=== PATIENT | male | born 1990 | race Caucasian/White ===

== ENCOUNTER 2024-09-16 06:49 | Emergency (ER) | payer MEDICAID, SELFPAY ==
[2024-09-16] VITALS (10 sets, daily range): BP systolic 132–149; BP diastolic 65–101; PULSE 83–118; RESP 26–45; TEMP 36.7–38.7; O2SAT 88–100; BMI 24.9
--- NOTE | ~2024-09-16 | CT_ITS ---
EXAMINATION: CT HEAD WITHOUT CONTRAST CLINICAL INFORMATION: Altered mental status. COMPARISON: None available. TECHNIQUE: Contiguous axial imaging was performed from the skull base to vertex without intravenous administration of contrast. This CT examination was performed using dose optimization techniques as appropriate, variously including the following: *Automated exposure control *Adjustment of mA and/or kV according to patient size (this includes techniques or standardized protocols for targeted exams where dose is matched to indication/reason for exam; i.e. extremities or head) *Use of iterative reconstruction technique FINDINGS: Study is limited by motion artifact, limiting the sensitivity of the examination. There is no evidence of intracranial hemorrhage or extra-axial fluid collection. There is no mass effect, or edema. No CT evidence of acute territorial infarct. Ventricles, sulci, and cisterns are normal in size and configuration for patient age. No hydrocephalus. No midline shift. Negative hyperdense MCA sign. Negative insular ribbon sign. No white matter abnormalities. Normal pituitary. Globes and orbital contents image normally. No extracranial soft tissue abnormalities. Moderate pansinus opacification is present, with associated mild frothy secretions and partial opacification of the paranasal sinuses. There is relative sparing of the right frontal sinus. No suspicious bony abnormalities. There are no acute fractures evident. CT/CT head/brain wo IV con IMPRESSION: 1. Motion degraded exam, limiting sensitivity. 2. No definite acute intracranial abnormality. 3. Moderate pansinus disease, with frothy secretions present. Cannot exclude acute sinusitis in the appropriate clinical setting. Electronically signed by: Jonah Fonseca MD 09/16/2024 08:51 AM EDT
--- NOTE | ~2024-09-16 | XR_ITS ---
CLINICAL HISTORY: sob 1 view chest x-ray. Comparison: None Findings: The lungs are adequately expanded. Faint right lower lobe infiltrate. No effusion or pneumothorax. Cardiac and mediastinal contours are within normal limits. No acute osseous abnormality Impression: Probable right lower lobe pneumonia. Follow-up recommended. This document has been electronically signed by: Bala Taylor MD on 09/16/2024 07:41:05
--- NOTE | ~2024-09-16 | CT_ITS ---
EXAMINATION: CT CHEST ANGIOGRAPHY WITH IV CONTRAST INDICATION: sob COMPARISON: Correlation is made with an AP portable view of the chest performed earlier in the day. TECHNIQUE: Helical CT scan of the chest was performed following administration of intravenous contrast (65 mL Omnipaque 350). The contrast bolus was timed to optimally opacify the pulmonary arteries. Thin sections were obtained through the pulmonary arteries. Coronal and sagittal reformatted images were generated. 3D/MIP reconstructed images are also obtained and reviewed. This CT exam was performed with one or more of the following dose reduction techniques: automated exposure control, adjustment of the mA and/or kV according to patient size, use of iterative reconstruction technique. DLP: 503 mGy-cm CHEST: THYROID: The thyroid gland is unremarkable. PULMONARY ARTERIES: The examination is markedly limited by patient respiratory motion. No obvious filling defects are seen within the pulmonary arteries to suggest pulmonary emboli. LUNGS: There is confluent airspace opacity in the left lower lobe, consistent with pneumonia. Additional patchy airspace opacity seen in the right lower lobe. MEDIASTINUM: There is no mediastinal lymphadenopathy. INGRID: There is no hilar lymphadenopathy. CARDIOVASCULATURE: The heart is normal in size. There is no pericardial effusion. The thoracic aorta is normal in caliber. DEGREE OF CORONARY CALCIFICATION: not evaluable, due to dense contrast opacification of the coronary arteries. PLEURA: There is no pleural effusion. No pneumothorax. MAIN AIRWAYS: The mainstem bronchi and proximal branches are patent. AXILLA: There is no axillary lymphadenopathy. UPPER ABDOMEN: The visualized portions of the liver, spleen, and adrenals are unremarkable. BONES AND SOFT TISSUES: There is degenerative disc disease of the spine. CT/CT angio chest PE protocol IMPRESSION: 1. Markedly limited examination of the pulmonary arteries due to respiratory motion artifact. No obvious pulmonary emboli. 2. Bilateral lower lobe pneumonia, left greater than right. Follow-up is recommended to document resolution. Electronically signed by: Tera Camara MD 09/16/2024 08:53 AM EDT
[2024-09-16] MEDS: Naloxone HCl Nasal 4 MG SPRAY NOSTRILALT (07:00)
--- NOTE | 2024-09-16 07:04 | ECG_ITS ---
Test Reason : overdose Blood Pressure : */* mmHG Vent. Rate : 109 BPM Atrial Rate : 109 BPM P-R Int : 138 ms QRS Dur : 84 ms QT Int : 462 ms P-R-T Axes : 77 69 68 degrees QTcB Int : 622 ms Sinus tachycardia Prolonged QT Abnormal ECG When compared with ECG of 18-Sep-2012 12:39, QT has lengthened Referred By: Kacy Cohen Electronically Signed By: NATAN DORANTES
--- NOTE | 2024-09-16 07:07 | ED_ITS ---
HPI - Weakness General Chief complaint: Overdose Stated complaint: OD Time Seen by Provider: 09/16/24 07:04 History of Present Illness HPI Narrative: Patient is a 34-year-old male found unresponsive inside his car. Agonal respiration. Patient was given Narcan. Increased respiratory rate still very lethargic sugar was noted to be 180. Patient is sent in for further evaluation. Related Data Allergies Allergy/AdvReac Type Severity Reaction Status Date / Time No Known Allergies Allergy Verified 09/16/24 07:26 Review of Systems 2 Review of Systems: Unable to obtain review of systems secondary to patient's condition [facility] Social History Social History Unable to assess alcohol history related to: Unable to respond Use of substances other than those prescribed or required for medical reasons: Unknown Advance Directives: No Advance Directives Information Provided: No Physical Exam 2 Vital Signs: Vital Signs: Last Vital Signs Temp 101 F H 09/16/24 13:02 Pulse 108 H 09/16/24 13:02 Resp 43 H 09/16/24 13:02 BP 132/65 09/16/24 13:02 Pulse Ox 95 09/16/24 13:02 O2 Del Method Oxymask 09/16/24 13:02 O2 Flow Rate 4 09/16/24 13:02 BMI result Body Mass Index 24.9 Appearance: Toxic appearing increased respiratory rate lethargic. Responds to simple questions Eyes: Pinpoint pupils. ENT: Pharynx normal. Neck: Normal inspection. Neck supple. No lymph nodes noted. No crepitus CVS: Tachycardic Respiratory: Increased respiratory rate rales bilaterally Abdomen: Soft nontender Skin: An area of vesicular lesion over the left forearm. Proximally 3 cm x 2 cm in size. Extremities: No lower extremity edema. Moving all extremities to painful stimuli Neuro: Oriented to self lethargic. Response to painful stimuli. Medications Administered Discontinued Medications Generic Name Dose Route Start Last Admin Trade Name Freq PRN Reason Stop Dose Admin Ceftriaxone Sodium 2 gm 09/16/24 07:24 09/16/24 07:38 Ceftriaxone Sodium 2 Gm Vial IVPUSH 09/16/24 07:25 2 gm ONCE ONE Administration Sodium Chloride 1,000 mls @ 999 mls/hr 09/16/24 07:15 09/16/24 08:00 Ns IV 09/16/24 08:15 Infused .Q1H1M CATRINA Infusion Vancomycin HCl 1,000 mg/ 535 mls @ 267.5 mls/hr 09/16/24 07:45 09/16/24 12:23 Vancomycin HCl 750 mg/ Sodium IV 09/16/24 09:44 Infused Chloride ONCE ONE Infusion Acetaminophen 1,000 mg in 100 mls @ 400 mls/hr 09/16/24 07:32 09/16/24 08:00 Ofirmev IV 09/16/24 07:46 Infused ONCE ONE Infusion Sodium Chloride 1,000 mls @ 999 mls/hr 09/16/24 08:30 09/16/24 09:19 Ns IV 09/16/24 09:30 Infused .Q1H1M CATRINA Infusion Sodium Chloride 500 mls @ 999 mls/hr 09/16/24 08:30 09/16/24 09:32 Ns IV 09/16/24 09:00 Infused .Q31M CATRINA Infusion Sodium Chloride 1,000 mls @ 999 mls/hr 09/16/24 10:15 09/16/24 11:12 Ns IV 09/16/24 11:15 Infused .Q1H1M CATRINA Infusion Iohexol 100 ml 09/16/24 08:16 09/16/24 08:16 Iohexol 350 Mg/Ml 100 Ml Infus..Btl IV 09/16/24 08:17 65 ml ONCE ONE Administration Naloxone HCl 4 mg 09/16/24 07:00 09/16/24 07:00 Naloxone Hcl Nasal 4 Mg [place] NOSTRILALT 09/16/24 07:01 4 mg ONCE ONE Administration Medical Decision Making Medical Decision Making MDM Narrative: Patient presented with overdose of heroin. Has extreme respiratory rate. Had a fever. Narcan was given an feel patient is still very lethargic has response to painful stimuli had increased respiratory rate. Patient's white count elevated. CT head by my interpretation was grossly negative. Patient's chest x-ray by my interpretation was grossly negative. Radiology reads it as a possible right lower lobe infiltrate. CT angio of the chest was done. Positive for having bilateral pneumonia but no PE. Patient's VBG by my interpretation showed no retention. His lactate is 1.7 there is no severe sepsis patient is given IV fluids. Culture obtained antibiotics started. Urine showed no gross signs of infection. Needs to be admitted. COVID flu RSV negative. Patient monitored in the emergency department for 5 hours. Still have elevated respiratory rate. Patient's blood gas showed no CO2 retention. Patient's O2 sat is in the 80s on room air with a few L patient's O2 sat is in the 90s. Still have an extremely elevated respiratory rate. CTA of the chest showed no evidence of PE. It did show evidence of bilateral basal infiltrate. Had a long discussion with the stave bolt equalizer. There is no ICU bed available at [facility]. Had a long discussion with the hospitalist team felt patient has inappropriate for the floor. In the setting of having respiratory rate in the 40s. Monitor patient for further few hours. Still having same symptoms. Case was discussed with [facility]. No bed available. Patient's case discussed with [facility] accepted patient to Dr. Abreu- Graham service. Differential Diagnosis Differential Diagnoses: The differential diagnosis associated with the presentation includes Pneumonia, polysubstance abuse, hypoglycemia, viral infection Admission/Observation Consideration of admission/observation: Escalation of care including admission/observation considered Consult Healthcare Provider Management of the patient was discussed with: Hospitalist Lab Data [facility] Lab Attestation statement: I reviewed the patient's lab results. 09/16/24 07:08 09/16/24 07:08 Labs: Lab Results 09/16/24 09/16/24 09/16/24 Range/Units 07:08 07:24 07:36 WBC 24.3 H (4.8-10.8) X10*3/uL RBC 5.51 (4.60-5.80) X10*6/uL Hgb 15.9 (14.0-18.0) g/dl Hct 46.1 (42.0-52.0) % MCV 83.7 (80.0-98.0) fL MCH 28.9 (27.0-33.0) pg MCHC 34.5 (31.0-36.0) g/dl RDW 12.4 (11.0-16.0) % Plt Count 259 (160-400) X10*3/uL MPV 10.9 (9.4-12.4) fL Immature Gran % (Auto) 0.7 H (0.0-0.4) % Neut % (Auto) 88.4 H (45-73) % Lymph % (Auto) 3.8 L (20-40) % [place] % (Auto) 6.4 (2-11) % Eos % (Auto) 0.5 (0-4) % Baso % (Auto) 0.2 (0-2) % Lymph # (Auto) 0.9 L (1.2-4.9) X10*3/uL [place] # (Auto) 1.6 H (0.1-1.2) X10*3/uL Eos # (Auto) 0.1 (0.0-0.4) X10*3/uL Baso # (Auto) 0.1 (0.0-0.2) X10*3/uL Abs Immat Gran (auto) 0.16 H (0.00-0.03) X10*3/uL Absolute Neuts (auto) 21.5 H (2.0-8.3) x10*3/uL Absolute Nucleated RBC 0.000 (0.0-0.012) X10*3/uL Nucleated RBC % (auto) 0.0 (0.0-0.2) /100WBC Smear Tech's Comments VERIFIED PT 20.9 H (10.9-12.4) SEC INR 1.8 H (0.9-1.1) VBG pH 7.38 (7.32-7.43) VBG pCO2 41 mmHg VBG pO2 88 mmHg VBG HCO3 25 (22-26) mmol/L VBG O2 Saturation 98.0 % VBG Base Excess 0.2 mmol/L Sodium 141 (135-145) mmol/L Potassium 3.4 (3.3-5.1) mmol/L Chloride 102 (96-108) mmol/L Carbon Dioxide 26 (22-29) mmol/L Anion Gap 16 (12-20) BUN 11 (9-16) mg/dL Creatinine 0.62 (0.5-1.4) mg/dL Estim Creat Clear Calc 150.0 Estimated GFR > 60 POC Glucose (60-115) mg/dL Random Glucose 180 H (60-115) mg/dL Lactic Acid 1.7 (0.5-2.0) mmol/L Calcium 10.0 (8.4-10.2) mg/dL Magnesium 1.8 (1.6-2.6) mg/dL Total Bilirubin 1.4 H (0.0-1.0) mg/dL Direct Bilirubin 0.6 H (0.0-0.5) mg/dL AST 48 H (5-37) U/L ALT 44 H (0-40) U/L Alkaline Phosphatase 162 H (39-117) U/L Troponin I High Sens 3.5 (<3.5-35.0) ng/L Total Protein 8.0 (6.5-8.0) g/dL Albumin 4.5 (3.5-5.0) g/dL Urine Color Urine Appearance Urine pH (5.0-9.0) Ur Specific Cordell (1.005-1.025) Urine Protein (Neg-Trace) mg/dL Urine Glucose (UA) (Negative) mg/dL Urine Ketones (Negative) mg/dL Urine Blood (Negative) Urine Nitrite (Negative) Ur Leukocyte Esterase (Negative) Urine RBC (0-2) /HPF Urine WBC (0-5) /HPF Ur Squamous Epith Cells (0-2) /HPF Urine Bacteria (None Seen) Hyaline Casts (0-2) /LPF Urine Opiates Screen (Not Detect) Ur Buprenorphine Scrn (Not Detect) ng/mL Ur Oxycodone Screen (Not Detect) ng/mL Urine Methadone Screen (Not Detect) ng/mL Urine Fentanyl Screen (Not Detect) Ur Barbiturates Screen (Not Detect) Ur Phencyclidine Scrn (Not Detect) Ur Amphetamines Screen (Not Detect) U Benzodiazepines Scrn (Not Detect) Urine Cocaine Screen (Not Detect) U Marijuana (THC) Screen (Not Detect) Influenza Type A (PCR) NEGATIVE (Negative) Influenza Type B (PCR) NEGATIVE (Negative) RSV RNA Qual (PCR) NEGATIVE (Negative) SARS-CoV-2 RNA (RT-PCR) NEGATIVE (Negative) 09/16/24 09/16/24 Range/Units 08:41 10:04 WBC (4.8-10.8) X10*3/uL RBC (4.60-5.80) X10*6/uL Hgb (14.0-18.0) g/dl Hct (42.0-52.0) % MCV (80.0-98.0) fL MCH (27.0-33.0) pg MCHC (31.0-36.0) g/dl RDW (11.0-16.0) % Plt Count (160-400) X10*3/uL MPV (9.4-12.4) fL Immature Gran % (Auto) (0.0-0.4) % Neut % (Auto) (45-73) % Lymph % (Auto) (20-40) % [place] % (Auto) (2-11) % Eos % (Auto) (0-4) % Baso % (Auto) (0-2) % Lymph # (Auto) (1.2-4.9) X10*3/uL [place] # (Auto) (0.1-1.2) X10*3/uL Eos # (Auto) (0.0-0.4) X10*3/uL Baso # (Auto) (0.0-0.2) X10*3/uL Abs Immat Gran (auto) (0.00-0.03) X10*3/uL Absolute Neuts (auto) (2.0-8.3) x10*3/uL Absolute Nucleated RBC (0.0-0.012) X10*3/uL Nucleated RBC % (auto) (0.0-0.2) /100WBC Smear Tech's Comments PT (10.9-12.4) SEC INR (0.9-1.1) VBG pH (7.32-7.43) VBG pCO2 mmHg VBG pO2 mmHg VBG HCO3 (22-26) mmol/L VBG O2 Saturation % VBG Base Excess mmol/L Sodium (135-145) mmol/L Potassium (3.3-5.1) mmol/L Chloride (96-108) mmol/L Carbon Dioxide (22-29) mmol/L Anion Gap (12-20) BUN (9-16) mg/dL Creatinine (0.5-1.4) mg/dL Estim Creat Clear Calc Estimated GFR POC Glucose 162 H (60-115) mg/dL Random Glucose (60-115) mg/dL Lactic Acid (0.5-2.0) mmol/L Calcium (8.4-10.2) mg/dL Magnesium (1.6-2.6) mg/dL Total Bilirubin (0.0-1.0) mg/dL Direct Bilirubin (0.0-0.5) mg/dL AST (5-37) U/L ALT (0-40) U/L Alkaline Phosphatase (39-117) U/L Troponin I High Sens (<3.5-35.0) ng/L Total Protein (6.5-8.0) g/dL Albumin (3.5-5.0) g/dL Urine Color Dark Yellow Urine Appearance Clear Urine pH 5.5 (5.0-9.0) Ur Specific Cordell >= 1.030 H (1.005-1.025) Urine Protein 100 (2+) H (Neg-Trace) mg/dL Urine Glucose (UA) Negative (Negative) mg/dL Urine Ketones 40 (Negative) mg/dL Urine Blood Negative (Negative) Urine Nitrite Negative (Negative) Ur Leukocyte Esterase Trace H (Negative) Urine RBC 0-2 (0-2) /HPF Urine WBC 0-5 (0-5) /HPF Ur Squamous Epith Cells 0-2 (0-2) /HPF Urine Bacteria None Seen (None Seen) Hyaline Casts 0-2 (0-2) /LPF Urine Opiates Screen Not Detected (Not Detect) Ur Buprenorphine Scrn Positive H (Not Detect) ng/mL Ur Oxycodone Screen Not Detected (Not Detect) ng/mL Urine Methadone Screen Not Detected (Not Detect) ng/mL Urine Fentanyl Screen POSITIVE H (Not Detect) Ur Barbiturates Screen Not Detected (Not Detect) Ur Phencyclidine Scrn Not Detected (Not Detect) Ur Amphetamines Screen Not Detected (Not Detect) U Benzodiazepines Scrn Not Detected (Not Detect) Urine Cocaine Screen POSITIVE H (Not Detect) U Marijuana (THC) Screen POSITIVE H (Not Detect) Influenza Type A (PCR) (Negative) Influenza Type B (PCR) (Negative) RSV RNA Qual (PCR) (Negative) SARS-CoV-2 RNA (RT-PCR) (Negative) ABG Data Interpretation: My interpretation patient's VBG results showed no CO2 retention. Independent Interpretation I performed an independent interpretation of an: EKG (Sinus tach heart rate is 110 AR QRS QTC normal no acute ST segment elevation), Plain X-Ray (Normal by my interpretation right lower lobe infiltrate by radiology's interpretation) and CT Scan (CT head grossly negative no bleed CT chest showed bilateral infiltrate) Radiology Impression Discussion of test interpretation with radiology: I have reviewed the radiologist's reading. External Record Review No significant record here EMS record reviewed Social Determinants Patient?s care significantly limited by Social Determinants of Health including: Alcoholism and drug addiction in family Critical Care Time Critical Care Time Critical Care Time: Yes Total Critical Care Time: 120 Attestation: I have personally provided 120 minutes of critical care time exclusive of time spent on separately billable procedures. ?Time includes review of lab data, radiology results, discussion with consultants, and monitoring for potential decompensation. ?Interventions were performed as documented above Discharge Plan Discharge Clinical Impression: Drug overdose Patient Disposition: [facility] Print Language: Slovenian
[2024-09-16 07:23] LABS: Basophils Absolute Auto 0.1 X10*3/uL (0.0-0.2); Basophils Percent Auto 0.2 % (0-2); Eosinophils Absolute Auto 0.1 X10*3/uL (0.0-0.4); Eosinophils Percent Auto 0.5 % (0-4); Hematocrit 46.1 % (42.0-52.0); Hemoglobin 15.9 g/dl (14.0-18.0); Imm Gran Abs Auto 0.16 X10*3/uL (0.00-0.03); Imm Gran Pct Auto 0.7 % (0.0-0.4); Lymphocytes Absolute Auto 0.9 X10*3/uL (1.2-4.9); Lymphocytes Percent Auto 3.8 % (20-40); MANUAL DIFF FLAG SCAN; Mean Corpuscular HGB Conc 34.5 g/dl (31.0-36.0); Mean Corpuscular Hemoglobin 28.9 pg (27.0-33.0); Mean Corpuscular Volume 83.7 fL (80.0-98.0); Mean Platelet Volume 10.9 fL (9.4-12.4); Monocytes Absolute Auto 1.6 X10*3/uL (0.1-1.2); Monocytes Percent Auto 6.4 % (2-11); Neutrophils Absolute Auto 21.5 x10*3/uL (2.0-8.3); Neutrophils Percent Auto 88.4 % (45-73); Platelet Count 259 X10*3/uL (160-400); Red Blood Count 5.51 X10*6/uL (4.60-5.80); Red Cell Distribution Width 12.4 % (11.0-16.0); SCAN SMEAR FLAG 1; White Blood Count 24.3 X10*3/uL (4.8-10.8)
[2024-09-16 07:27] LABS: INTERNATIONAL NORM RATIO 1.8 (0.9-1.1); Prothrombin Time 20.9 SEC (10.9-12.4)
[2024-09-16 07:30] LABS: VBG Base Excess 0.2 mmol/L; VBG HCO3 25 mmol/L (22-26); VBG pCO2 41 mmHg; VBG pH 7.38 (7.32-7.43); VBG pO2 88 mmHg
[2024-09-16 07:31] LABS: Venous Blood Gas Refer to POC result
[2024-09-16] MEDS: 0.9 % Sodium Chloride 1,000 ML 999 ML IV ×3 (07:38→10:14)
[2024-09-16] MEDS: cefTRIAXone sodium 2 GM VIAL IVPUSH (07:38)
[2024-09-16] MEDS: Acetaminophen 1,000 MG/100 ML PIGGYBACK 400 MG IV (07:38)
[2024-09-16 07:41] LABS: Lactic Acid 1.7 mmol/L (0.5-2.0)
[2024-09-16 07:50] LABS: Alanine Aminotransferase 44 U/L (0-40); Albumin Level 4.5 g/dL (3.5-5.0); Alkaline Phosphatase 162 U/L (39-117); Anion Gap 16 (12-20); Aspartate Amino Transferase 48 U/L (5-37); Bilirubin Direct 0.6 mg/dL (0.0-0.5); Bilirubin Total 1.4 mg/dL (0.0-1.0); Blood Urea Nitrogen 11 mg/dL (9-16); Carbon Dioxide 26 mmol/L (22-29); Chloride 102 mmol/L (96-108); Estimated Glomerular Filt Rate > 60; Glucose Random 180 mg/dL (60-115); Magnesium 1.8 mg/dL (1.6-2.6); Potassium 3.4 mmol/L (3.3-5.1); Sodium 141 mmol/L (135-145); Troponin-I High Sensitivity 3.5 ng/L (<3.5-35.0)
[2024-09-16 07:56] LABS: SLIDE REVIEW VERIFIED
[2024-09-16] MEDS: iohexoL 350 MG/ML 100 ML INFUS..BTL IV (08:16)
--- NOTE | 2024-09-16 08:44 | PC.NURSE ---
Pt restless on stretcher; tacchypneic 30-40 RR; 100% 5 ltr Oxymask; MD aware; FC inserted per orders, 16Fr; pt tolerated well; coarse rhonchi upper cohen, dim clear bases
[2024-09-16 08:49] LABS: Appearance Urine Clear; Color Urine Dark Yellow; Glucose Urine UA Negative (Negative); Leukocyte Esterase Urine Trace (Negative); Nitrite Urine Negative (Negative); PH 5.5 (5.0-9.0); Specific Gravity - Urine >= 1.030 (1.005-1.025); UMIC TRIGGER UACC YES; Urine Blood Negative (Negative); Urine Ketones 40 mg/dL (Negative); Urine Protein 100 (2+) mg/dL (Neg-Trace)
[2024-09-16 08:54] LABS: Bacteria Urine None Seen (None Seen); Hyaline Casts Urine 0-2 /LPF (0-2); RBC Urine 0-2 /HPF (0-2); Squamous Epithelial Cell Urine 0-2 /HPF (0-2); WBC Urine 0-5 /HPF (0-5)
[2024-09-16 08:58] LABS: Amphetamine Screen Urine Not Detected (Not Detect); Barbiturates, Urine Not Detected (Not Detect); Benzodiazepines Screen Urine Not Detected (Not Detect); Buprenorphine Scr Positive (Not Detect); Cannabinoid Screen Urine POSITIVE (Not Detect); Cocaine Screen Urine POSITIVE (Not Detect); Fentanyl, urine POSITIVE (Not Detect); Methadone Screen, Urine Not Detected (Not Detect); Opiate Screen Urine Not Detected (Not Detect); Oxycodone Screen Urine Not Detected (Not Detect); Phencyclidine Screen Urine Not Detected (Not Detect)
[2024-09-16] MEDS: 0.9 % Sodium Chloride 500 ML 999 ML IV (09:01)
--- NOTE | 2024-09-16 09:14 | PC.NURSE ---
Pharmacy called twice regarding Vancomycin ordered; this RN told it was being made over an hour ago; still awaiting antibiotic; made aware
[2024-09-16] MEDS: vancomycin HCL 1,000 MG, vancomycin HCL 750 MG in 0.9 % Sodium Chloride 500 ML 267.5 MG IV (09:32)
[2024-09-16 10:10] LABS: Glucose, Whole Blood 162 mg/dL (60-115)
[2024-09-16 10:10] LABS: Influenza A PCR NEGATIVE (Negative); Influenza B PCR NEGATIVE (Negative); Resp Syncy Virus RNA Qual PCR NEGATIVE (Negative); SARS COV2 PCR INHOUSE NEGATIVE (Negative)
--- NOTE | 2024-09-16 10:11 | PC.NURSE ---
Pt remains unable to answer any questions or respond to name; responds to phys. stim only; unable to follow instructions; pt continues to thrash around stretcher; SAO2 87-93% RA; pt 88% at this time RA/placed on 4 ltr oxymask; RR 20-30's; temp 98.1 rectally
--- NOTE | 2024-09-16 10:13 | PM.EVENT ---
Event Note Date of Service: 09/16/24 Event Note: Asked to see patient for admission to the medical floor. Chart reviewed and patient evaluated. At the time of my exam the patient is lethargic and unable to obey commands. Respiratory rates are around 30 with SpO2 dipping down to 86% on room air. The patient has been treated with Narcan in the field and 1 dose in the ED. He has been given 3L of fluid, IV tylenol, IV rocephin/vancomcyin. He has had minimal urine output. Patient is unstable for admission to the medical floor. This has been relayed to the ED provider (Dr. Cohen). Will re-evaluate once stabilized. Time Spent With Patient Time: Total time managing care of this patient today ____ minutes.
--- NOTE | 2024-09-16 12:22 | PC.NURSE ---
Pt cont to be unresponsive to voice, unable to follow instructions; remains tacchypneic 25-30's, mouth-breathing; SAO2 94% 4 ltr Oxymask; awaiting dispo from MD at this time
--- OUTSIDE RECORDS SUMMARY | 2024-09-16 12:50 | XMS_ITS ---
Author Organization [facility] Address [address] [place] [phone] Care Team Providers Care Drilling Engineer Name Role Phone [facility] Primary Care Provi elsi Unavailable Trinity Rogers Unavailable [phone] [facility], Nursing Unavailable [phone] REASON FOR VISIT Office: Intake Encounters Encounter Location Date Provider Diagnosis [address] [phone] 07/12/2024 Nursing [facility] Plan Of Treatment No Information Progress Notes * Everardo SAMPSON PDOB: [birth year] (34 yo M)Acc No.[id number]:07/12/2024 Progress Notes Patient:?Everardo SAMPSON Provider:?Provider [facility] :1990???Age:34 Y???Sex:Male Calixto e:07/12/2024 Address:[address] [place], [place] [id number] Pcp:for the [facility] Subjective: * Chief Complaints: * ???1. Office: Intake. * Medical History:? Objective: * Vitals:? Assessment: Plan: * Treatment: * Images: Billing Information: * Visit Code:? * Procedure Codes:? * Electronic signature of Nurs [facility] on 09/16/2024 at 12:50 PM EDT Sign off status: Pending * Provider:?Provider [facility] Date:?07/12/2024 Generated for Printi ng/Faxing/eTransmitting on:?09/16/2024 12:50 PM EDT
--- NOTE | 2024-09-16 13:00 | PC.NURSE ---
Pt having rigors; rectal temp 101; pt's resp rate 43 and heavy use of accessory muscles; MD made aware several times; no new orders at this time; cold packs applied to axillae and posterior neck to try and reduce fever; pt repositioned to try and decrease respiratory effort
--- NOTE | 2024-09-16 13:53 | PC.NURSE ---
Report called to MARIA INES Recinos at [facility] ER for transfer; pt treated per orders for fever with [place] Tylenol
[2024-09-16] MEDS: Acetaminophen Supp 650 MG SUPP.RECT PR (13:54)
--- NOTE | 2024-09-16 15:06 | PC.NURSE ---
Bedside report gv to [facility] medic crew; no change in pt condition at this time
== END 2024-09-16 15:12 | disposition short-term general hospital (02) ==
PROVIDERS: Emergency Medicine Emergency Medical Services; Emergency Provider Emergency Medicine
DX: T40.1X1A Poisoning by heroin, accidental (unintentional), initial encounter (principal); R40.4 Transient alteration of awareness; Y92.810 Car as the place of occurrence of the external cause; J18.9 Pneumonia, unspecified organism; R00.0 Tachycardia, unspecified; R73.9 Hyperglycemia, unspecified; Z03.818 Encounter for observation for suspected exposure to other biological agents ruled out; S51.802A Unspecified open wound of left forearm, initial encounter; B95.62 Methicillin resistant Staphylococcus aureus infection as the cause of diseases classified elsewhere; B95.0 Streptococcus, group A, as the cause of diseases classified elsewhere; X58.XXXA Exposure to other specified factors, initial encounter; Y93.9 Activity, unspecified; Y92.9 Unspecified place or not applicable; Y99.9 Unspecified external cause status
CPT/HCPCS: 0241U; 36415; 70450; 71045; 71275; 80048; 80076; 80307; 81001; 82803; 82947; 83605; 83735; 84484; 85025; 85610; 87040; 87070; 87077; 87147; 87186; 87205; 93005; 96361; 96365; 96366; 96367; 96375; 99285; J0131; J0696; J3370; Q9967

== ENCOUNTER → 2024-09-16 07:04 | Outpatient (BNV) | payer MEDICAID, SELFPAY | PROVIDERS: Emergency Provider Emergency Medicine; Visit Provider Internal Medicine | DX: R00.0 Tachycardia, unspecified (principal) | CPT/HCPCS: 93010 ==

== ENCOUNTER → 2024-09-16 07:04 | Outpatient (BNV) | payer MEDICAID, SELFPAY | PROVIDERS: Emergency Provider Emergency Medicine Emergency Medical Services; Visit Provider Radiology Vascular & Interventional Radiology | DX: J18.1 Lobar pneumonia, unspecified organism (principal); R41.82 Altered mental status, unspecified; R06.02 Shortness of breath | CPT/HCPCS: 70450; 71045; 71275 ==

== ENCOUNTER 2024-11-11 21:42 | Inpatient (IN) | payer MEDICAID, SELFPAY ==
--- NOTE | ~2024-11-11 | CT_ITS ---
CLINICAL HISTORY: right facila neck infection CT soft tissue neck with contrast. Comparison: None provided Findings: There is subcutaneous fat stranding and soft tissue swelling in the right face and neck extending into the right insurance legal assistant space and right parapharyngeal space. There is a small rim enhancing fluid collection in the region of the right parapharyngeal space measuring about 1.4 x 1.1 cm. There is additional ill-defined small rim enhancing collection within and deep to the right parotid gland difficult to measure due to its ill-defined margins, but roughly measuring 1 x 0.9 cm axially and 2.3 cm vertically. The airway remains widely patent. The right masseter muscle is enlarged/edematous relative to the left consistent with reactive myositis due to the surrounding infection/inflammation. The right parotid gland is enlarged with increased enhancement. Submandibular glands are unremarkable. There are mildly enlarged right submandibular and right cervical lymph nodes consistent with reactive lymphadenopathy. Epiglottis is normal in size. Blood vessels of the neck are unremarkable. There is a subcentimeter right thyroid nodule which does not meet size criteria for follow-up. IMPRESSION: 1. Subcutaneous fat stranding and soft tissue swelling in the right face and neck as described above compatible with cellulitis. 2. Small rim enhancing fluid collections consistent with abscesses in the right parapharyngeal space and within and deep to the right parotid gland. 3. Right parotid gland is enlarged with increased enhancement consistent with parotitis. 4. Enlarged edematous right masseter muscle consistent with reactive myositis. 5. Mildly enlarged right submandibular and cervical lymph nodes consistent with reactive lymphadenopathy. This document has been electronically signed by: Rudy Pierson MD on 11/12/2024 01:51:49
[2024-11-11 21:49] VITALS: BP 124/81; PULSE 103; RESP 18; TEMP 37.2; O2SAT 98; BMI 22.4
--- OUTSIDE RECORDS SUMMARY | 2024-11-11 22:23 | XMS_ITS | Clinical Summary ---
Author Organization Formerly [facility] Address [address] [place] [address] Care Team Prov[address] Care Ct Technologist Name Role Phone Unknown Primary Care Provider [phone] Medications sertraline (ZOLOFT) 100 MG tablet Take 1 tablet (100 mg total) by mouth daily. Active naloxone (NARCAN) 0.4 mg/mL injectionIndicat ions:AMS (altered mental status),Sepsis (HCC),Aspiration pneumonia (HCC),Overdose,D rug overdose of undetermined intent, initial encounter Infuse 1 mL (0.4 mg total) into a venous catheter once as needed for opioid reversal or respiratory depression. 1 mL 5 Active naloxone (NARCAN) 4 mg/0.1 mL Liquid nasal spray deviceIndication s:Overdose [place] contents (4mg) into one nostril once. May repeat every 2 to 3 minutes in alternating nostrils. Call 911 immediately after use. 1 each 1 5 Active Active Problems Problem Noted Date Diagnosed Date Drug overdose of undetermined intent, initial en counter 09/16/2024 Encounters Date Type Department Care Team Description 09/16/2024 5:10 PM EDT Ancillary Procedure [facility] [address] [place] [address] Provider, File Room 09/16/2024 5:05 PM EDT Ancillary Procedure [facility] [address] [place] [address] Provider, File Room 09/16/2024 5:05 PM EDT Ancillary Procedure [facility] [address] [place] [address] Provider, File Room 09/16/2024 4:55 PM EDT Ancillary Procedure [facility] [address] [place] [address] Provider, File Room 09/16/2024 4:20 PM EDT - 09/17/2024 4:10 PM EDT Hospital Encounter [facility] BLSARAH [address] [place] [phone] Michael Dubose MD Panico, Megan, MD Khan, MD Thomas Maradiaga, MD Jaren Simmons Andrew, MD AMS (altered mental status) (Primary Dx); Sepsis (HCC); Aspiration pneumonia (HCC); Overdose; Drug overdose of undetermined intent, initial encounter Discharge Disposition: Home or Self Care 09/16/2024 Orders Only [facility] [address] [place] [address] Provider, File Room from Last 3 Months Social History Tobacco Use Types Packs/Day Years Used Date Smoking Tobacco: Never Assessed [facility] Utilities Answer Date Recorded In the past 12 months has th e [employer], gas, oil, or water [employer] threatened to shut off services in your home? No 09/17/2024 Hunger Vital Sign Answer Date Recorded Within the past 12 months, y ou worried that your food would run out before you got the money to buy more. Sometimes true Within the past 12 months, t he food you bought just didn't last and you didn't have money to get more. Sometimes true 06/2024 PRAPARE - Transportation Answer Date Re corded In the past 12 months, has l ack of transportation kept you from medical appointments or from getting medications? No 06/2024 In the past 12 months, has l ack of transportation kept you from meetings, work, or from getting things needed for daily living? No 09/17/2024 Housing Stability Vital Sign Answer Calixto e Recorded In the last 12 months, was t here a time when you were not able to pay the mortgage or rent on time? No 09/17/2024 In the past 12 months, how m any times have you moved where you were living? 1 09/17/2024 At any time in the past 12 m [facility], were you homeless or living in a nursing home (including now)? No 09/17/2024 Sex and Gender Information Value Date Recorded Sex Assigned at Not on file Legal Sex Male 6:29 PM EST Gender Identity Male 09/16/2024 7:40 PM EDT Sexual Orientation Not on file Last Filed Vital Signs Vital Sign Reading Time Taken Comments Blood Pressure 120/65 09/17/2024 2:00 PM EDT Pulse 88 09/17/2024 2:00 PM EDT Temperature 35.9 C (96.6 F) 09/17/2024 11:43 AM EDT Respiratory Rate 20 09/17/2024 2:00 PM EDT Oxygen Saturation 96% 09/17/2024 2:00 PM EDT Inhaled Oxygen Concentration - - Weight 77.5 kg (170 lb 13.7 oz) 09/16/2024 9:58 PM EDT Height 170.2 cm (5' 7 ) 09/16/2024 9:58 PM EDT Body Mass Index 26.76 09/16/2024 9:58 PM EDT Plan of Treatment Health Maintenance Due Date Last Done Comments Hepatitis C Virus Screening 1989 HIV Screening 2002 DTaP/Tdap/Td Vaccines (1 - Tdap) 2008 Hepatitis B Vaccines (1 of 3 - 19+ 3-dose series) 2008 COVID-19 Vaccine (2023-2 5 season) 2023 Influenza Vaccine 11/15/2024 HPV Vaccines Aged Out No longer eligi ble based on patient's age to complete this topic Pneumococcal Vaccine: Pediat trey (0-5 Years) and At-Risk Patients (6 to 49 Years) Aged Out No longer eligible b ased on patient's age to complete this topic Procedures Procedure Name Priority Date/Time Associated Diagnosis Comments NASAL MRSA SCREEN, PCR Routine 10:00 AM EDT PHOSPHORUS STAT 09/17/2024 2:28 AM EDT MAGNESIUM STAT 09/17/2024 2:28 AM EDT COMPLETE BLOOD COUNT, WITHOUT DIFFERENTIAL STAT 09/17/2024 2:28 AM EDT BASIC METABOLIC PANEL STAT 09/17/2024 2:28 AM EDT XR CHEST 1 VIEW-PORTABLE STAT 09/16/2024 8:26 PM EDT ETHANOL, BLOOD STAT 09/16/2024 7:54 PM EDT AMMONIA LEVEL STAT 09/16/2024 7:54 PM EDT LACTIC ACID, PLASMA Timed 09/16/2024 7 :[address] HEAD ARCHIVE FOR REFERENCE ONLY Routine 09/16/2024 5:02 PM EDT CR CHEST ARCHIVE FOR REFERENCE ONLY Routine 09/16/2024 5:[address] CHEST ARCHIVE FOR REFERENCE ONLY Routine 09/16/2024 5:[address] CHEST ARCHIVE FOR REFERENCE ONLY Routine 09/16/2024 4:54 PM EDT BLOOD GAS, VENOUS STAT 09/16/2024 4:4 4 PM EDT ECG 12-LEAD STAT 09/16/2024 4:39 PM EDT BLOOD CULTURE (HOSP LAB) STAT 09/16/2024 4:39 PM EDT TSH, HIGHLY SENSITIVE STAT 09/16/2024 4:35 PM EDT PROBNP, N-TERMINAL STAT 09/16/2024 4: 35 PM EDT PHOSPHORUS STAT 09/16/2024 4:35 PM EDT PROCALCITONIN STAT 09/16/2024 4:35 PM EDT HIGH SENSITIVITY TROPONIN T STAT 09/16/2024 4:35 PM EDT LIPASE STAT 09/16/2024 4:35 PM EDT HEPATIC FUNCTION PANEL STAT 4:35 PM EDT MAGNESIUM STAT 09/16/2024 4:35 PM EDT BASIC METABOLIC PANEL STAT 09/16/2024 4:35 PM EDT COMPLETE BLOOD COUNT, WITH DIFFERENTIAL STAT 09/16/2024 4:35 PM EDT LACTIC ACID, PLASMA Timed 09/16/2024 4 :35 PM EDT POCT GLUCOSE, FINGERSTICK (CHARGE) Routine 09/16/2024 4:32 PM EDT from Last 3 Months Results * (ABNORMAL) Nasal MRSA Screen, PCR (09/17/2024 10:00 AM EDT) [facility] MRSA Result Detected( A) Not Detected 09/17/2024 12:27 PM EDT [facility] Comment:Performed by the Xpe rt MRSA NxG Assay Swab, Anterior Nares Specimen from nose / Unknown 09/17/2024 10:00 AM EDT 09/17/2024 10:35 AM EDT Doyle Eastman MD MICROBIOLOGY - GENERAL ORD ERABLES Final Result [address] [address], [address] [address] * (ABNORMAL) COMPLETE BLOOD COUNT, WITHOUT DIFFERENTIAL (09/17/2024 2:28 AM EDT) [facility] White Blood Cell Count 16.6(H) 4.0 - 11.0 Thou/uL 09/17/2024 2:55 AM EDT [facility] Platelet Count 198 150 - 450 Thou/uL 09/17/2024 2:55 AM EDT [facility] Hemoglobin 12.5(L) 13.0 - 17.7 g/dL 09/17/2024 2:55 AM T [facility] Hematocrit 38.6(L) 39.0 - 54.0 % 09/17/2024 2:55 AM [facility] Red Blood Cell Count 4.48(L) 4.50 - 6.20 Mil/uL 09/17/2024 2:55 AM [facility] MCV 86 80 - 100 fL 09/17/2024 2:55 AM [facility] MCH 27.9 26.0 - 34.0 pg 09/17/2024 2:55 AM [facility] MCHC 32.4 30.0 - 36.0 g/dL 09/17/2024 2:55 AM [facility] RDW 12.4 11.5 - 14.5 % 09/17/2024 2:55 AM [facility] MPV 10.9 7.5 - 12.5 fL 09/17/2024 2:55 AM [facility] Blood Blood specimen / Unknown 09/17/2024 2:28 AM EDT 09/17/2024 2:44 AM EDT AnabeneSoldirk PA LAB BLOOD ORDERABLES Final Re sult Performing Organization Address [facility] [place] [address], [place] [address] * (ABNORMAL) Phosphorus (09/17/2024 2:28 AM EDT) Only the most recent of2 resultswithin the time period is included. Phosphorus 1.2(L) 2.7 - 4.5 mg/dL 09/17/2024 3:10 AM EDT [facility] Blood Blood specimen / Unknown 09/17/2024 2:28 AM EDT 09/17/2024 2:44 AM EDT Ana Pazienza PA LAB BLOOD ORDERABLES Final Re sult Performing Organization Address City/[facility] [place] [address], [address] [address] * Magnesium (09/17/2024 2:28 AM EDT) Only the most recent of2 resultswithin the time period is included. Magnesium 2.1 1.6 - 2.7 mg/dL 09/17/2024 3:10 AM [facility] Blood Blood specimen / Unknown 09/17/2024 2:28 AM EDT 09/17/2024 2:44 AM EDT Ana ANNE LAB BLOOD ORDERABLES Final Re sult [address] [address], [address] [address] * (ABNORMAL) Basic Metabolic Panel (09/17/2024 2:28 AM EDT) Only the most recent of2 resultswithin the time period is included. Glucose 116(H) 65 - 99 mg/dL 09/17/2024 3:10 AM [facility] Comment:Fasting: <100 mg/dL, Non-Fasting: <200 mg/dL (ADA 2005) Blood Urea Nitrogen (BUN) 11 8 - 21 mg/dL 09/17/2024 3:10 AM [facility] Creatinine 0.4(L) 0.5 - 1.3 mg/dL 09/17/2024 3:10 AM [facility] eGFR >90 >59 09/17/2024 3:10 AM [facility] Comment:CKD-EPI (2020) in mL /min/1.73 sq meters. Sodium 142 136 - 145 mmol/L 09/17/2024 3:10 AM [facility] Potassium 4.2 3.4 - 5.3 mmol/L 09/17/2024 3:10 AM [facility] Chloride 109(H) 98 - 107 mmol/L 09/17/2024 3:10 AM [facility] CO2 24 22 - 33 mmol/L 09/17/2024 3:10 AM [facility] Anion Gap 9 7 - 17 09/17/2024 3:10 AM EDT [facility] Calcium 8.4(L) 8.7 - 10.5 mg/dL 09/17/2024 3:10 AM EDT [facility] BUN/Creatinine Ratio 28(H) 10.0 - 25.0 Ratio 09/17/2024 3:10 AM EDT [facility] Blood Blood specimen / Unknown 09/17/2024 2:28 AM EDT 09/17/2024 2:44 AM EDT Ana Myersdirk ANNE LAB BLOOD ORDERABLES Final Re sult [address] [address], [address] [address] * XR Chest 1 view-Portable (09/16/2024 8:26 PM EDT) Anatomical Region Laterality Modality Chest Computed Radiogr aphy 09/16/2024 7:41 PM EDT Impressions 09/16/2024 9:53 PM EDT * Interval development of retrocardiac opacification with left basilar streaky with blunting of left costophrenic angle. Findings likely correlate with pulmonary edema, however, a consolidation can't be excluded. * Interval development of a small left pleural effusion. Interpreted by: Eloy Costello DO M1A1 Tank Crewman Attending addendum: Left lung base consolidation. Small left pleural effusion. Patchy hazy opacities in the lingula, concerning for infectious/inflammatory process. I personally reviewed the images and the resident's preliminary report and made the MINOR addendum above (RADPAL2). Narrative 09/16/2024 9:53 PM EDT EXAMINATION: XR CHEST 1 VIEW PORTABLE CLINICAL INFORMATION: hypoxia COMPARISON: Chest radiograph same day TECHNIQUE: AP view of the chest was obtained. FINDINGS: Lungs are well-expanded. Retrocardiac opacification with left basilar streaky opacities. Blunting of left costophrenic lobe. No pneumothorax. Normal-sized cardiac mediastinal silhouette. No acute osseous abnormalities. Procedure Note Jayce Salcedo MD - 09/16/2024 EXAMINATION: XR CHEST 1 VIEW PORTABLE CLINICAL INFORMATION: hypoxia COMPARISON: Chest radiograph same day TECHNIQUE: AP view of the chest was obtained. FINDINGS: Lungs are well-expanded. Retrocardiac opacification with left basilar streaky opacities. Blunting of left costophrenic lobe. No pneumothorax. Normal-sized cardiac mediastinal silhouette. No acute osseous abnormalities. IMPRESSION: * Interval development of retrocardiac opacification with left basilar streaky with blunting of left costophrenic angle. Findings likely correlate with pulmonary edema, however, a consolidation can't be excluded. * Interval development of a small left pleural effusion. Interpreted by: Eloy Costello DO M1A1 Tank Crewman Attending addendum: Left lung base consolidation. Small left pleural effusion. Patchy hazy opacities in the lingula, concerning for infectious/inflammatory process. I personally reviewed the images and the resident's preliminary report and made the MINOR addendum above (RADPAL2). Ana ANNE IMG DIAGNOSTIC IMAGING ORDERA BLES Final Result * Ammonia Level (09/16/2024 7:54 PM EDT) Ammonia, Plasma 40 16 - 60 umol/L 09/16/2024 8:37 PM EDT [facility] Blood Blood specimen / Unknown 09/16/2024 7:54 PM EDT 09/16/2024 8:09 PM EDT Nora Bower PA-C LAB BLOOD ORDERABLES Final Result [address] [address], [address] [address] * Ethanol, Blood (09/16/2024 7:54 PM EDT) Ethanol, Quantitative, Blood <11 <11 mg/dL 09/16/2024 8:34 PM EDT [facility] Comment:* FOR MEDICAL PURPOS ES ONLY * Blood Blood specimen / Unknown 09/16/2024 7:54 PM EDT 09/16/2024 8:10 PM EDT Nora Bower PA-C LAB BLOOD ORDERABLES Final Result Performing Organization Address [facility] Co de Phone Number [address] [address], [address] [address] * Lactic Acid, Q2h X 2 (09/16/2024 7:04 PM EDT) Only the most recent of2 resultswithin the time period is included. Lactic Acid 1.6 0.5 - 1.9 mmol/L 09/16/2024 7:58 PM EDT [facility] Blood Blood specimen / Unknown 09/16/2024 7:04 PM EDT 09/16/2024 7:27 PM EDT Michael Dubose MD LAB BLOOD ORDERABLES Final R esult Performing Organization Address [facility] de Phone Number [address] [address], [address] [address] * CT Head Archive for Reference Only (09/16/2024 5:02 PM EDT) Narrative UNADILLA - 09/16/2024 5:02 PM EDT This study has been auto finalized and does not contain a result. File Room Provider IMG DIGITIZE FILMS Final Resu lt Performing Organization Address [facility] de Phone Number UNADILLA [phone] * CR Chest Archive for Reference only (09/16/2024 5:01 PM EDT) Narrative UNADILLA - 09/16/2024 5:01 PM EDT This study has been auto finalized and does not contain a result. File Room Provider IMG DIGITIZE FILMS Final Resu lt Performing Organization Address [facility] Co de Phone Number UNADILLA [phone] * CT Chest Archive for Reference Only (09/16/2024 5:01 PM EDT) Only the most recent of2 resultswithin the time period is included. Juice FARLEY - 09/16/2024 5:01 PM EDT This study has been auto finalized and does not contain a result. us File Room Provider IMG DIGITIZE FILMS Final Resu lt Performing Organization Address City/[facility]/ZIP Co de Phone Number MARTINE [phone] * (ABNORMAL) Blood Gas, Venous (VBG) (09/16/2024 4:44 PM EDT) [facility] Venous Blood PH 7.39 7.33 - 7.43 09/16/2024 4:51 PM EDT [facility] Venous pCO2 43 35 - 50 mmHG 09/16/2024 4:51 PM EDT [facility] Venous pO2 85(H) 0 - 60 mmHG 09/16/2024 4:51 PM EDT [facility] Venous Total CO2 27 23 - 29 mmol/L 09/16/2024 4:51 PM EDT [facility] Respiratory Info NON REBREATHER 09/16/2024 4:27 PM EDT [facility] Base Excess 0.7 mmol/L 09/16/2024 4:51 PM EDT [facility] Comment:Reference Range: Neg ative 2 to Positive 3 Blood Blood specimen / Unknown 09/16/2024 4:44 PM EDT 09/16/2024 4:46 PM EDT Michael Dubose MD LAB BLOOD ORDERABLES Final R esult Performing Organization Address [facility] Co de Phone Number [address] [address], [address] [address] * ECG 12 lead (09/16/2024 4:39 PM EDT) [facility] Signature Ventricular rate 98 BPM EKG [facility] Atrial rate 98 BPM EKG [facility] P-R interval 150 ms EKG [facility] QRS duration 86 ms EKG [facility] Q-T interval 356 ms EKG [facility] QTC calculation (Bazett) 455 ms EKG [facility] P axis 73 degrees EKG [facility] R axis 30 degrees EKG [facility] T axis 46 degrees EKG [facility] 09/16/2024 4:39 PM EDT Narrative EKG [facility] - 09/16/2024 5:09 PM EDT Normal sinus rhythm Poor R wave progression Abnormal ECG No previous ECGs available Confirmed by DO Regalado Steven ([id number]) on 09/16/2024 5:09:00 PM Procedure Note Buzz Regalado DO - 09/16/2024 Normal sinus rhythm Poor R wave progression Abnormal ECG No previous ECGs available Confirmed by DO Regalado Steven ([id number]) on 09/16/2024 5:09:00 PM Michael Dubose MD ECG ORDERABLES Final Result Performing Organization Address City/[facility]/ZIP Co de Phone Number [facility] * Blood Culture (09/16/2024 4:39 PM EDT) Culture Sterile after 5 days 09/21/2024 10:43 AM EDT [facility] Blood Blood specimen / Unknown 09/16/2024 4:39 PM EDT 09/16/2024 6:17 PM EDT Comment:Blood Michael Dubose MD LAB BLOOD ORDERABLES Final R esult [facility] [address] [place] [address], [place] * High Sensitivity Troponin T (09/16/2024 4:35 PM EDT) High Sensitivity Troponin T 7 <23 ng/L 09/16/2024 8:13 PM EDT [facility] Delta (Change) NO PREVIOUS RESULT <3 09/16/2024 8:13 PM EDT [facility] 09/16/2024 4:35 PM EDT 09/16/2024 5:15 PM EDT Michael Dubose MD LAB BLOOD ORDERABLES Final R esult Performing Organization Address [facility]/ZIP Co de Phone Number [address] [address], [address] [address] * (ABNORMAL) PROCALCITONIN (09/16/2024 4:35 PM EDT) [facility] Procalcitonin 4.69(H) <0.51 ng/mL 09/16/2024 8:30 PM EDT [facility] Comment: New Reference Range for Procalcitonin (NOTE) Procalcitonin (PCT) Guided Antibiotic Management for Respiratory Infection Initial PCT interpretation: < 0.25 ng/mL: Antibiotics NOT likely needed (bacterial etiology very unlikely). 0.26 - 0.50 ng/mL: Antibiotics are NOT likely needed unless clinical concern for infection (bacterial etiology unlikely). >0.50 ng/mL: Antibiotics likely needed (bacterial etiology likely). Repeat PCT interpretation: Initial PCT < 5 ng/mL: Consider stopping antibiotics when PCT < 0.25 ng/mL. Initial PCT > 5 ng/mL: Consider stopping antibiotics when 80% reduction in PCT from initial value or PCT < 0.25 ng/mL. The above interpretative values are not appropriate for non-respiratory infectious diagnostics 09/16/2024 4:35 PM EDT 09/16/2024 5:15 PM EDT Michael Dubose MD LAB BLOOD ORDERABLES Final R esult Performing Organization Address City/[facility]/ZIP Co de Phone Number [address] [address], [address] [address] * (ABNORMAL) proBNP, N-terminal (09/16/2024 4:35 PM EDT) proBNP, N-terminal 232(H) <125 pg/mL 09/16/2024 8:13 PM EDT [facility] 09/16/2024 4:35 PM EDT 09/16/2024 5:15 PM EDT Michael Dubose MD LAB BLOOD ORDERABLES Final R esult [address] [address], [address] [address] * (ABNORMAL) Complete Blood Count, with Differential (09/16/2024 4:35 PM EDT) White Blood Cell Count 16.1(H) 4.0 - 11.0 Thou/uL 09/16/2024 5:29 PM [facility] Platelet Count 210 150 - 450 Thou/uL 09/16/2024 5:29 PM [facility] Hemoglobin 13.2 13.0 - 17.7 g/dL 09/16/2024 5:29 PM [facility] Hematocrit 39.6 39.0 - 54.0 % 09/16/2024 5:29 PM [facility] Red Blood Cell Count 4.61 4.50 - 6.20 Mil/uL 09/16/2024 5:29 PM [facility] MCV 86 80 - 100 fL 09/16/2024 5:[facility] M[facility] 28.6 26.0 - 34.0 pg 09/16/2024 5:29 [facility] MCHC 33.3 30.0 - 36.0 g/dL 09/16/2024 5:29 PM [facility] RDW 12.4 11.5 - 14.5 % 09/16/2024 5:29 [facility] MPV 11.1 7.5 - 12.5 fL 09/16/2024 5:29 PM EDT [facility] Bands Man 7 % 09/16/2024 5:59 PM EDT [facility] Neutrophils Man 79 % 5:59 PM EDT [facility] Lymphocytes Man 9 % 5:59 PM EDT [facility] Monocytes Man 5 % 09/16/2024 5:59 PM EDT [facility] Abs Neutrophils Count (ANC) 13.9(H) 2.0 - 7.5 Thou/uL 09/16/2024 5:59 PM EDT [facility] Abs Lymphocytes Man 1.5 1.5 - 4.5 Thou/uL 09/16/2024 5:59 PM EDT [facility] Abs Monocytes Man 0.8 0.2 - 1.5 Thou/uL 09/16/2024 5:59 PM EDT [facility] Normochromic Present 09/16/2024 5:59 PM EDT [facility] Normocytic Present 09/16/2024 5:59 PM EDT [facility] Blood Blood specimen / Unknown 09/16/2024 4:35 PM EDT 09/16/2024 5:15 PM EDT Michael Dubose MD LAB BLOOD ORDERABLES Final R esult Performing Organization Address City/[facility]/[place] [address], [place] [address] * TSH, HIGHLY SENSITIVE (09/16/2024 4:35 PM EDT) TSH, Highly Sensitive 0.27 0.27 - 4.20 mIU/L 09/16/2024 8:13 PM EDT [facility] 09/16/2024 4:35 PM EDT 09/16/2024 5:15 PM EDT Michael Dubose MD LAB BLOOD ORDERABLES Final R esult Performing Organization Address City/[facility]/[place] [address], [place] [address] * (ABNORMAL) Lipase (09/16/2024 4:35 PM EDT) Lipase 6(L) 13 - 60 U/L 09/16/2024 5:48 PM EDT [facility] Blood Blood specimen / Unknown 09/16/2024 4:35 PM EDT 09/16/2024 5:15 PM EDT iMchael Dubose MD LAB BLOOD ORDERABLES Final R esult [address] [address], [address] [address] * (ABNORMAL) Hepatic Function Panel (09/16/2024 4:35 PM EDT) Alkaline Phosphatase 115 45 - 128 U/L 09/16/2024 5:48 PM EDT [facility] Aspartate Aminotrans (AST) 25 10 - 55 U/L 09/16/2024 5:48 PM EDT [facility] Alanine Aminotrans (ALT) 27 10 - 55 U/L 09/16/2024 5:48 PM EDT [facility] Bilirubin, Total 0.9 0.2 - 1.0 mg/dL 09/16/2024 5:48 PM EDT [facility] Protein, Total 6.2(L) 6.3 - 8.3 g/dL 09/16/2024 5:48 PM EDT [facility] Albumin 3.2(L) 3.5 - 5.0 g/dL 09/16/2024 5:48 PM EDT [facility] Bilirubin, Direct 0.4(H) 0 - 0.2 mg/dL 09/16/2024 5:48 PM EDT [facility] Globulin 3.0 1.5 - 3.9 g/dL 09/16/2024 5:48 PM EDT [facility] Albumin/Globulin Ratio 1.1 1.0 - 3.0 Ratio 09/16/2024 5:48 PM EDT [facility] Blood Blood specimen / Unknown 09/16/2024 4:35 PM EDT 09/16/2024 5:15 PM EDT Michael Dubose MD LAB BLOOD ORDERABLES Final R esult [address] [address], [address] [address] * (ABNORMAL) POCT Glucose, Fingerstick (09/16/2024 4:32 PM EDT) POC Glucose 135(H) 65 - 99 mg/dL 09/16/2024 4:33 PM EDT Blood specimen / Unknown 09/16/2024 4:32 PM EDT 09/16/2024 4:33 PM EDT Michael Dubose MD POINT OF CARE TEST ORDERABLE S Final Result [facility]OSPITAL LAB See Below from Last 3 Months Insurance [facility] Advance Directives * Full Code (Latest Code Status on File) Date Activated Date Inactivated Comments 09/16/2024 7:[address] Technologist Relationship Specialty Start Date End Date Unknown Unknow Provider Address PCP - General 09/16/24
--- OUTSIDE RECORDS SUMMARY | 2024-11-11 22:23 | XMS_ITS | Clinical Summary ---
Author Organization [facility] Address [address] [place] [address] Phone Care Team Providers Care [employer] Demonstrator Name Role Phone Physician, No Pcp Primary Care Provider Unavaila ble Allergies No known active allergies Medications No known medications Active Problems No known active problems Social History Tobacco Use Types Packs/Day Years Used Date Smoking Tobacco: Never Assessed Sex and Gender Information Value Date Recorded Sex Assigned at Male 06/03/2024 6:16 PM EST Legal Sex Male 8:09 PM EST Gender Identity Male 06/03/2024 6:16 PM EST Sexual Orientation Straight 06/03/2024 6: 16 PM EST Obstetrics History Last Filed Vital Signs Vital Sign Reading Time Taken Comments Blood Pressure 131/69 06/03/2024 6:01 PM EST Pulse 95 06/03/2024 6:01 PM EST Temperature 37 C (98.6 F) 06/03/2024 6:01 PM EST Respiratory Rate 19 06/03/2024 6:01 PM EST Oxygen Saturation 98% 06/03/2024 6:01 PM EST Inhaled Oxygen Concentration - - Weight 81.6 kg (180 lb) 06/03/2024 3:36 PM EST Height 170.2 cm (5' 7 ) 06/03/2024 3:36 PM EST Body Mass Index 28.19 06/03/2024 3:36 PM EST Plan of Treatment Health Maintenance Due Date Last Done Comments Hepatitis B Vaccines (3 of 3 - 3-dose series) 12/24/2001 10/29/2001, 02/02/2001 DTaP,Tdap,and Td Vaccines (7 - Td or Tdap) 12/07/2010 12/07/2000, 06/29/1994, 06/29/1992, Additional history exists COVID-19 Vaccine ( season) 2023 08/10/2020, 07/18/2020 Depression Screening 04/17/2024 Cholesterol Screening (Lipid Panel) 06/03/2024 HIV Screening 06/03/2024 Hepatitis C Screening 06/03/2024 Social Influencers of Health Screening 06/03/2024 Influenza Vaccine (#1) 2024 HIB Vaccines Aged Out 06/29/1990, 06/29/1990 No lo nger eligible based on patient's age to complete this topic IPV Vaccines Completed 06/29/1994, 06/15, 06/29/1990, Additional history exists MMR Vaccines Completed 09/29/1997, 06/29/1994 Varicella Vaccines Aged Out 09/29/1997 No longer eligible based on patient's age to complete this topic HPV Vaccines Aged Out No longer eligi ble based on patient's age to complete this topic Hepatitis A Vaccines Aged Out No long er eligible based on patient's age to complete this topic Meningococcal ACWY Vaccine Aged Out N o longer eligible based on patient's age to complete this topic Meningococcal B Vaccine Aged Out No l onger eligible based on patient's age to complete this topic Pneumococcal Vaccine: Pediatrics (0 to 5 Years) and At-Risk Patients (6 to 49 Years) Aged Out No longer eligible based on patient's age to complete this topic RSV Immunization Patients Under 20 months Aged Out No longer eligible based on patient's age to complete this topic Insurance MEDICAID - [place] Care Teams University Demonstrator Relationship Specialty Start Date End Date Physician, No Pcp PCP - General 06/03/24
--- OUTSIDE RECORDS SUMMARY | 2024-11-11 22:23 | XMS_ITS ---
Author Name [facility] Organization Unknown Results Test Name/Text Value Interpretation Date Range Source Result Detected Abnormal 09/17/2024 - HHCCT Sodium SerPl-sCnc 142.0 mmol/L 09/17/2024 136 - 14 5 HHCCT Potassium SerPl-sCnc 4.2 mmol/L 09/17/2024 3.4 - 5 .3 HHCCT Chloride SerPl-sCnc 109.0 mmol/L Above high normal 98 - 107 HHCCT GFR/BSA.pred SerPlBld [id number] >90.0 09/17/2024 59 - HHCCT BUN/Creat SerPl 28.0 Ratio Above high normal 09/17/2024 10 - 25 HHCCT Anion Gap Bld-sCnc 9.0 09/17/2024 7 - 17 HHCCT BUN SerPl-mCnc 11.0 mg/dL 09/17/2024 8 - [address] Creat SerPl-mCnc 0.4 mg/dL Below low normal 09/17/2024 0.5 - 1.3 HHCCT CO2 SerPl-sCnc 24.0 mmol/L 09/17/2024 22 - 33 HH CCT Calcium SerPl-mCnc 8.4 mg/dL Below low normal 09/17/2024 8.7 - 10.5 HHCCT Glucose SerPl-mCnc 116.0 mg/dL Above high normal 09/17/2024 65 - 99 HHCCT Magnesium SerPl-mCnc 2.1 mg/dL 09/17/2024 1.6 - 2. 7 HHCCT Phosphate SerPl-mCnc 1.2 mg/dL Below low normal 09/17/2024 2 .7 - 4.5 HHCCT PMV Bld Auto 10.9 fL 09/17/2024 7.5 - 12.5 HHCCT MCH RBC Qn Auto 27.9 pg 09/17/2024 26 - [address] Platelet num Bld Auto 198.0 Thou/uL 09/17/2024 150 - 450 HHCCT WBC num Bld Auto 16.6 Thou/uL Above high normal 09/17/2024 4 - 11 HHCCT RDW RBC Auto-Rto 12.4 % 09/17/2024 11.5 - 14.5 HHCCT Hgb Bld-mCnc 12.5 g/dL Below low normal 09/17/2024 13 - 17.7 HHCCT Hct VFr Bld Auto 38.6 % Below low normal 09/17/2024 39 - 54 HHCCT MCV RBC Auto 86.0 fL 09/17/2024 80 - 100 HHCCT RBC num Bld Auto 4.48 Mil/uL Below low normal 09/17/2024 4.5 - 6.2 HHCCT MCHC RBC Auto-mCnc 32.4 g/dL 09/17/2024 30 - 36 HHCCT Ammonia Plas-sCnc 40.0 umol/L 09/17/2024 16 - 60 HHCCT Ethanol SerPl-mCnc <11.0 mg/dL 09/17/2024 - 11 HHCCT Lactate SerPl-sCnc 1.6 mmol/L 09/16/2024 0.5 - 1.9 HHCCT pO2 BldV 85.0 mmHG Above high normal 09/16/2024 0 - 60 H HCCT pCO2 BldV 43.0 mmHG 09/16/2024 35 - 50 HHCCT Base excess BldA Calc-sCnc 0.7 mmol/L 09/16/2024 HHCCT pH BldV 7.39 09/16/2024 7.33 - 7.43 HHCCT CO2 BldV-sCnc 27.0 mmol/L 09/16/2024 23 - [address] Respiratory Information NON REBREATHER 09/16/2024 HHCCT Procalcitonin SerPl EIA-mCnc 4.69 ng/mL Above high normal 09/17/2024 - 0.51 HHCCT Delta NO PREVIOUS RESULT 09/17/2024 - 3 HHCCT Troponin T SerPl-mCnc 7.0 ng/L 09/17/2024 - 23 HHCCT pro BNP, N-terminal 232.0 pg/mL Above high normal 09/17/2024 - 125 HHCCT TSH SerPl DL<=0.005 mIU/L-aCnc 0.27 mIU/L 09/17/2024 0.27 - 4.2 HHCCT Phosphate SerPl-mCnc 1.4 mg/dL Below low normal 09/17/2024 2 .7 - 4.5 HHCCT Normochromic Bld Ql Smear Present 09/16/2024 HHCCT Neuts Band num Bld Manual 7.0 % 09/16/2024 HHCCT Segmented Neutrophil 79.0 % 09/16/2024 HHCCT Normocytes Present 09/16/2024 HHCCT Lymphocytes num Bld Auto 1.5 Thou/uL 09/16/2024 1.5 - 4.5 HHCCT Lymphocytes/leuk NFr Bld Auto 9.0 % 09/16/2024 HHCCT Monocyte, Absolute 0.8 Thou/uL 09/16/2024 0.2 - 1. 5 HHCCT Neutrophils num Bld Auto 13.9 Thou/uL Above high normal 09/16/2024 2 - 7.5 HHCCT Monocytes/leuk NFr Bld Auto 5.0 % 09/16/2024 HHCCT MCH RBC Qn Auto 28.6 pg 09/16/2024 26 - [address] RDW RBC Auto-Rto 12.4 % 09/16/2024 11.5 - 14.5 HHCCT Hgb Bld-mCnc 13.2 g/dL 09/16/2024 13 - 17.7 HHCCT MCHC RBC Auto-mCnc 33.3 g/dL 09/16/2024 30 - 36 HHCCT Platelet num Bld Auto 210.0 Thou/uL 09/16/2024 150 - 450 HHCCT RBC num Bld Auto 4.61 Mil/uL 09/16/2024 4.5 - 6.2 HHCCT WBC num Bld Auto 16.1 Thou/uL Above high normal 09/16/2024 4 - 11 HHCCT MCV RBC Auto 86.0 fL 09/16/2024 80 - 100 HHCCT Hct VFr Bld Auto 39.6 % 09/16/2024 39 - 54 HH CCT PMV Bld Auto 11.1 fL 09/16/2024 7.5 - 12.5 HHCCT Lactate SerPl-sCnc 1.8 mmol/L 09/16/2024 0.5 - 1.9 HHCCT Calcium SerPl-mCnc 8.2 mg/dL Below low normal 09/16/2024 8.7 - 10.5 HHCCT Glucose SerPl-mCnc 118.0 mg/dL Above high normal 09/16/2024 65 - 99 HHCCT GFR/BSA.pred SerPlBld GOT-[id number]-[id number] >90.0 09/16/2024 59 - HHCCT Sodium SerPl-sCnc 143.0 mmol/L 09/16/2024 136 - 14 5 HHCCT Potassium SerPl-sCnc 3.5 mmol/L 09/16/2024 3.4 - 5 .3 HHCCT CO2 SerPl-sCnc 20.0 mmol/L Below low normal 09/16/2024 22 - 33 HHCCT BUN SerPl-mCnc 10.0 mg/dL 09/16/2024 8 - [address] Chloride SerPl-sCnc 110.0 mmol/L Above high normal 5 98 - 107 HHCCT Anion Gap Bld-sCnc 13.0 09/16/2024 7 - 17 HHCCT Creat SerPl-mCnc 0.4 mg/dL Below low normal 09/16/2024 0.5 - 1.3 HHCCT BUN/Creat SerPl 25.0 Ratio 09/16/2024 10 - 25 HH CCT AST SerPl-cCnc 25.0 U/L 09/16/2024 10 - 55 HHCC T Bilirub Direct SerPl-mCnc 0.4 mg/dL Above high normal 09/16/2024 0 - 0.2 HHCCT Bilirub SerPl-mCnc 0.9 mg/dL 09/16/2024 0.2 - 1 HHCCT Albumin SerPl-mCnc 3.2 g/dL Below low normal 09/16/2024 3.5 - 5 HHCCT ALT SerPl-cCnc 27.0 U/L 09/16/2024 10 - 55 HHCC T ALP SerPl-cCnc 115.0 U/L 09/16/2024 45 - 128 HHCC T Globulin Ser Calc-mCnc 3.0 g/dL 09/16/2024 1.5 - 3.9 HHCCT Albumin/Glob SerPl 1.1 Ratio 09/16/2024 1 - 3 HHCCT Prot SerPl-mCnc 6.2 g/dL Below low normal 09/16/2024 6.3 - 8.3 HHCCT Magnesium SerPl-mCnc 1.7 mg/dL 09/16/2024 1.6 - 2. 7 HHCCT Lipase SerPl-cCnc 6.0 U/L Below low normal 09/16/2024 13 - 60 HHCCT POC Glucose 135.0 mg/dL Above high normal 09/16/2024 65 - 99 HHCCT Encounters Encounter Type Encounter Reason Primary Diagnosis Location Date Inpatient Altered mental status, unspecified Altered mental status, unspecified [facility] 09/16/2024 Care Team Organization Name Specialty Phone Email Start Date End Da angelic [facility] 09/17/2024 10/16/2024 [facility] 09/16/2024
[2024-11-11 23:55] VITALS: BP 145/88; PULSE 108; TEMP 37.5; O2SAT 100
[2024-11-11 23:56] LABS: MANUAL DIFF FLAG NO
[2024-11-11 23:58] LABS: Hematocrit 34.2 % (42.0-52.0); Hemoglobin 11.6 g/dl (14.0-18.0); Imm Gran Abs Auto 0.04 X10*3/uL (0.00-0.03); Imm Gran Pct Auto 0.3 % (0.0-0.4); Lymphocytes Absolute Auto 2.6 X10*3/uL (1.2-4.9); Mean Corpuscular HGB Conc 33.9 g/dl (31.0-36.0); Mean Corpuscular Hemoglobin 28.0 pg (27.0-33.0); Mean Corpuscular Volume 82.4 fL (80.0-98.0); NRBC Abs Auto 0.000 X10*3/uL (0.0-0.012); NRBC Pct Auto 0.0 /100WBC (0.0-0.2); Platelet Count 322 X10*3/uL (160-400); Red Blood Count 4.15 X10*6/uL (4.60-5.80); White Blood Count 12.7 X10*3/uL (4.8-10.8)
[2024-11-12] MEDS: 0.9 % Sodium Chloride 1,944 ML 1944 ML IV (00:04)
[2024-11-12 00:12] LABS: Alanine Aminotransferase 28 U/L (0-40); Albumin Level 4.2 g/dL (3.5-5.0); Alkaline Phosphatase 68 U/L (39-117); Anion Gap 10 (12-20); Aspartate Amino Transferase 46 U/L (5-37); Blood Urea Nitrogen 8 mg/dL (9-16); Calcium 9.3 mg/dL (8.4-10.2); Carbon Dioxide 31 mmol/L (22-29); Chloride 102 mmol/L (96-108); Creatinine Clr Calc Pharmacy 152.4; Estimated Glomerular Filt Rate > 60; Magnesium 2.1 mg/dL (1.6-2.6); Potassium 3.3 mmol/L (3.3-5.1); Sodium 140 mmol/L (135-145); Total Protein 7.5 g/dL (6.5-8.0)
[2024-11-12] MEDS: iohexoL 350 MG/ML 100 ML INFUS..BTL 60 ML IV (00:39)
[2024-11-12 00:58] VITALS: TEMP 36.9
[2024-11-12 01:30] VITALS: BP 116/65; PULSE 54; RESP 19; TEMP 36.8; O2SAT 94
--- NOTE | 2024-11-12 02:42 | ED_ITS ---
HPI - General Adult General Chief complaint: General Medical Stated complaint: right side of face swollen Time Seen by Provider: 11/11/24 23:38 Source: patient Limitations: other (intoxication) History of Present Illness ED Provider: Kimmy Cabrera PA-C HPI narrative: 34-year-old male with a history of polysubstance abuse, housing and security who presents with right-sided facial swelling x3 days. Associated sore throat. Denies dysphagia, dyspnea, dental pain or fever. Related Data Allergies Allergy/AdvReac Type Severity Reaction Status Date / Time No Known Allergies Allergy Verified 11/11/24 21:52 Review of Systems 2 Review of Systems: Yes all other systems are reviewed and are negative Constitutional: Constitutional: Denies fatigue and Denies fever(s) ENT: Denies dental pain, Denies dysphagia, Reports facial pain, Reports sore throat and Denies throat swelling Cardiovascular: Cardiovascular: Denies dyspnea Respiratory: Respiratory: Denies dyspnea Gastrointestinal: Gastrointestinal: Denies dysphagia Endocrine: Endocrine: Denies fatigue Allergic/Immunologic: Allergic/Immunologic: Denies throat swelling [facility] Past Medical History Attestation statement: The following information was validated with the patient. Social History Social History Unable to assess alcohol history related to: Unable to respond Smoked in Last 30 Days: Yes Use of substances other than those prescribed or required for medical reasons: Yes Substance Use Type: Crack/Cocaine Advance Directives: No Advance Directives Information Provided: No Physical Exam ED Vital Signs: Vital Signs - 24 hr 11/11/24 21:49 11/11/24 23:55 11/12/24 00:58 Temperature 99.0 F 99.5 F 98.5 F Pulse Rate 103 H 108 H Respiratory Rate 18 Blood Pressure 124/81 145/88 H Pulse Oximetry 98 100 Oxygen Delivery Method Room Air Room Air 11/12/24 01:30 11/12/24 03:19 Temperature 98.2 F Pulse Rate 54 78 Respiratory Rate 19 21 H Blood Pressure 116/65 110/63 Pulse Oximetry 94 96 Oxygen Delivery Method Room Air Room Air BMI result Body Mass Index 22.4 Const Other: Somnolent, having to repeatedly wake the patient with verbal and physical stimuli Orientation/consciousness: patient oriented x3 HENMT Other: Soft swelling that protrudes medially along right-sided buccal mucosa, overall poor dentition noted, uvula midline, bilateral tonsils are prominent, no trismus no drooling. Swelling over right cheek that has extensive, becomes firm as it approaches the jawline, positive cervical lymphadenopathy, no sublingual fluctuance Eyes Other: pupils small in caliber, but not pinpoint Resp Other: No stridor Effort & Inspection: normal respiratory effort Cardio Other: Normal peripheral perfusion Skin Other: Warm dry no rash Neuro General: patient oriented x3, gait normal, no focal motor deficits and CN's II- XI intact bilaterally Psych Other: Uncooperative, intoxicated Course Consultations Consultation #1: spoke with Dr. Bills, ED attending, he will accept as ED to ED transfer once I speak with ENT....paging ENT now Time: 02:42 Consultation #2: speaking with ENT from [facility], Dr. Aquino, there was nothing to do from a surgical perspective, the abscesses are 2 small, the patient will require steroids, IV antibiotics and admission..... No need to initiate transfer Time: 03:04 Medications Administered Generic Name Dose Route Start Last Admin Trade Name Freq PRN Reason Stop Dose Admin Vancomycin HCl 1,500 mg/ 500 mls @ 333.333 mls/hr 11/12/24 02:33 11/12/24 03:12 Sodium Chloride IV 11/12/24 04:02 333.33 mls/hr ONCE ONE Administration Discontinued Medications Generic Name Dose Route Start Last Admin Trade Name Freq PRN Reason Stop Dose Admin Dexamethasone Sodium Phosphate 10 mg 11/12/24 03:05 11/12/24 03:12 Dexamethasone Sod Phosphate 10 Mg/Ml Vial IVPUSH 11/12/24 03:06 10 mg ONCE ONE Administration Sodium Chloride 1,944 mls @ 1,944 mls/hr 11/11/24 23:38 11/12/24 01:29 Ns 30 ml/kg infuse over 1 hr (1944 ml) 11/12/24 00:37 Infused IV Infusion .Q1H STA Acetaminophen 1,000 mg in 100 mls @ 400 mls/hr 11/11/24 23:38 11/12/24 01:04 Ofirmev IV 11/11/24 23:52 Infused ONCE ONE Infusion Piperacillin Sod/Tazobactam 50 mls @ 100 mls/hr 11/12/24 02:33 11/12/24 03:17 Sod 3.375 gm/ Sodium Chloride IV 11/12/24 03:02 Infused ONCE ONE Infusion Iohexol 60 ml 11/12/24 00:34 11/12/24 00:39 Iohexol 350 Mg/Ml 100 Ml Infus..Btl IV 11/12/24 00:35 60 ml ONCE ONE Administration Ketorolac Tromethamine 15 mg 11/11/24 23:46 11/12/24 00:04 Ketorolac Tromethamine 15 Mg/Ml Vial IVPUSH 11/11/24 23:47 15 mg ONCE ONE Administration Medical Decision Making Medical Decision Making MDM Narrative: 34-year-old male with a history of polysubstance abuse, housing and security who presents with right-sided facial swelling x3 days. Associated sore throat. Denies dysphagia, dyspnea, dental pain or fever. Problem: Polysubstance abuse History: Per patient I have considered the following differential diagnoses: Sialoadenitis, sialolithiasis, parotitis, Ravinder angina, RPA, OCULAR CARE TECHNOLOGIST, dental abscess, cancer Plan: I will be obtaining imaging of the neck which will capture to just below the orbits. It is difficult to discern want underlying pathology is causing the swelling. It could easily be a dental abscess, he has poor dentition, with a obvious dental caries. Thought about RPA OCULAR CARE TECHNOLOGIST, however the uvula remains midline, there was no trismus or drooling. I do not believe this is Ravinder angina, he has no soft fluctuant swelling inferior to the jawline. This certainly could be parotitis versus sialoadenitis. The patient states the swelling occurred rapidly, likely not cancer, although the patient has not a reliable historian with the his polysubstance abuse. We will be ordering screening labs, blood culture and a lactic acid. The patient is not technically febrile, temperature is 99.5?, starting weight based IV fluid, giving Tylenol and Toradol for his discomfort. The patient also empiric is intoxicated, he emphatically denies , when I can wake him up. Adding serum ethanol and drug screen. I have independently reviewed the following tests: Labs: Leukocytosis with left shift, not anemic, no electrolyte abnormality, drug screen and ethanol pending CT neck soft tissue: IMPRESSION: 1. Subcutaneous fat stranding and soft tissue swelling in the right face and neck as described above compatible with cellulitis. 2. Small rim enhancing fluid collections consistent with abscesses in the right parapharyngeal space and within and deep to the right parotid gland. 3. Right parotid gland is enlarged with increased enhancement consistent with parotitis. 4. Enlarged edematous right masseter muscle consistent with reactive myositis. 5. Mildly enlarged right submandibular and cervical lymph nodes consistent with reactive lymphadenopathy. Lab Data 11/11/24 23:49 11/11/24 23:49 Labs: Lab Results 11/11/24 Range/Units 23:49 WBC 12.7 H (4.8-10.8) X10*3/uL RBC 4.15 L D (4.60-5.80) X10*6/uL Hgb 11.6 L D (14.0-18.0) g/dl Hct 34.2 L D (42.0-52.0) % MCV 82.4 (80.0-98.0) fL MCH 28.0 (27.0-33.0) pg MCHC 33.9 (31.0-36.0) g/dl RDW 14.2 (11.0-16.0) % Plt Count 322 (160-400) X10*3/uL MPV 9.6 (9.4-12.4) fL Immature Gran % (Auto) 0.3 (0.0-0.4) % Neut % (Auto) 71.1 (45-73) % Lymph % (Auto) 20.2 (20-40) % [place] % (Auto) 6.9 (2-11) % Eos % (Auto) 1.0 (0-4) % Baso % (Auto) 0.5 (0-2) % Lymph # (Auto) 2.6 (1.2-4.9) X10*3/uL [place] # (Auto) 0.9 (0.1-1.2) X10*3/uL Eos # (Auto) 0.1 (0.0-0.4) X10*3/uL Baso # (Auto) 0.1 (0.0-0.2) X10*3/uL Abs Immat Gran (auto) 0.04 H (0.00-0.03) X10*3/uL Absolute Neuts (auto) 9.0 H (2.0-8.3) x10*3/uL Absolute Nucleated RBC 0.000 (0.0-0.012) X10*3/uL Nucleated RBC % (auto) 0.0 (0.0-0.2) /100WBC Sodium 140 (135-145) mmol/L Potassium 3.3 (3.3-5.1) mmol/L Chloride 102 (96-108) mmol/L Carbon Dioxide 31 H (22-29) mmol/L Anion Gap 10 L (12-20) BUN 8 L (9-16) mg/dL Creatinine 0.62 (0.5-1.4) mg/dL Estim Creat Clear Calc 152.4 Estimated GFR > 60 Random Glucose 105 (60-115) mg/dL Lactic Acid 0.7 (0.5-2.0) mmol/L Calcium 9.3 D (8.4-10.2) mg/dL Magnesium 2.1 (1.6-2.6) mg/dL Total Bilirubin 0.8 (0.0-1.0) mg/dL AST 46 H (5-37) U/L ALT 28 (0-40) U/L Alkaline Phosphatase 68 (39-117) U/L Total Protein 7.5 (6.5-8.0) g/dL Albumin 4.2 (3.5-5.0) g/dL Discharge Plan Discharge Clinical Impression: Acute parotitis, Parapharyngeal space abscess, Myositis, Polysubstance abuse Patient Disposition: Admitted As Inpatient Print Language: Faroese
[2024-11-12 03:19] VITALS: BP 110/63; PULSE 78; RESP 21; O2SAT 96
[2024-11-12 04:48] VITALS: BP 123/82; PULSE 76; RESP 20; TEMP 36.9; O2SAT 94
--- NOTE | 2024-11-12 05:48 | P.HPHOSP_ITS ---
History of Present Illness Date of Service: 11/12/24 Attending physician on admission: Dragan Julien Chief Complaint: facial swelling Patient is a 34-year-old male with a past medical history significant for polysubstance abuse and homelessness, who presented to the ED due to right-sided facial swelling for the past 3 days. He describes an associated sore throat but denies any dysphagia, dyspnea, dental pain or fever. No cough, shortness of breath or chest pain. Pt is somnolent, does not respond to questions much, mostly mumbles a few words. Review of Systems 2 Constitutional: Constitutional: Denies body ache(s), Denies chills, Denies fatigue, Denies fever(s) and Denies headache(s) Eyes: Eyes: Denies change in vision ENT: Denies headache(s) and Reports sore throat Cardiovascular: Cardiovascular: Denies chest pain, Denies rapid heart rate, Denies leg edema, Denies lightheadedness and Denies dyspnea Respiratory: Respiratory: Denies chest congestion, Denies cough, Denies dyspnea and Denies wheezing Gastrointestinal: Gastrointestinal: Denies abdominal pain, Denies diarrhea, Denies nausea and Denies vomiting Genitourinary: Genitourinary: Denies dysuria, Denies urinary frequency and Denies urinary urgency Musculoskeletal: Musculoskeletal: Denies back pain Integumentary/Breasts: Skin/Breast: Denies rash Neurologic: Denies confusion and Denies headache(s) Psychiatric: Psychiatric: Denies confusion Endocrine: Endocrine: Denies fatigue Hematologic/Lymphatic: Hematologic/Lymphatic: Denies easy bleeding and Denies easy bruising Allergic/Immunologic: Allergic/Immunologic: Denies wheezing [facility] Medical History (Updated 11/12/24 @ 05:54 by Nilsa Marcano PA-C) Polysubstance abuse Functional capacity: independent ambulation Social History Unable to assess alcohol history related to: Unable to respond Smoked in Last 30 Days: Yes Use of substances other than those prescribed or required for medical reasons: Yes Substance Use Type: Crack/Cocaine Advance Directives: No Advance Directives Information Provided: No Meds Allergies Allergy/AdvReac Type Severity Reaction Status Date / Time No Known Allergies Allergy Verified 11/11/24 21:52 Active Medications: Current Medications Acetaminophen (Acetaminophen 325 Mg Tablet) 975 mg PO Q6H PRN PRN Reason: Pain, Mild 1-3,fever,headache Calcium Carbonate (Calcium Carbonate 750 Mg Tab.Chew) 750 mg PO Q4H PRN PRN Reason: Heartburn Dexamethasone Sodium Phosphate (Dexamethasone Sod Phosphate 4 Mg/Ml Vial) 6 mg IVPUSH Q6H [facility] Enoxaparin Sodium (Enoxaparin Sodium 40 Mg/0.4 Ml Syringe) 40 mg SUBCUT Q24H [facility] Piperacillin Sod/Tazobactam (Sod 3.375 gm/ Sodium Chloride) 50 mls @ 100 mls/hr IV Q6H [facility] Magnesium Hydroxide (Milk Of Magnesia 30 Ml Oral.Susp) 30 ml PO DAILY PRN PRN Reason: Constipation Melatonin (Melatonin 3 Mg Tablet) 6 mg PO BEDTIME PRN PRN Reason: Insomnia Morphine Sulfate (Morphine Sulfate 4 Mg/Ml Cartridge) 2 mg IVPUSH Q4H PRN; Protocol PRN Reason: Pain, Severe (Pain Scale 7-10) Oxycodone HCl (Oxycodone Hcl Immed Release 5 Mg Tablet) 5 mg PO Q6H PRN PRN Reason: Pain, Moderate(Pain Scale 4-6) Pharmacy Consult (Consult Rx Vancomycin Dosing) 1 each MISCELLANE DAILY PRN PRN Reason: Consult order Sodium Chloride (0.9 % Sodium Chloride Flush 3 Ml Syringe) 3 ml IVFLUSH QSHIFT [facility] Physical Exam 2 Vital Signs and Narrative: Vital Signs: Last Vital Signs Temp 98.5 F 11/12/24 04:48 Pulse 76 11/12/24 04:48 Resp 20 11/12/24 04:48 BP 123/82 11/12/24 04:48 Pulse Ox 94 11/12/24 04:48 O2 Del Method Room Air 11/12/24 04:48 BMI result Body Mass Index 22.4 General: AOx3, no acute distress ENT: Significant right-sided facial swelling, airway patent Resp: CTA bilaterally CVS: S1, S2, RRR GI: +BS, NT, no distention Skin: Warm, dry Neuro: Cranial nerves II-XII grossly intact bilaterally. Motor grossly intact bilaterally Extremities: No edema Psych: Appropriate affect Const: General: No confusion Orientation/consciousness: No confusion Neuro: General: No confusion Results Labs 11/11/24 23:49 11/11/24 23:49 Labs: Laboratory Results - last 24 hr 11/11/24 23:49 MCV 82.4 MCH 28.0 MCHC 33.9 RDW 14.2 Plt Count 322 MPV 9.6 Immature Gran % (Auto) 0.3 Neut % (Auto) 71.1 Lymph % (Auto) 20.2 Hyde % (Auto) 6.9 Eos % (Auto) 1.0 Baso % (Auto) 0.5 Lymph # (Auto) 2.6 [place] # (Auto) 0.9 Eos # (Auto) 0.1 Baso # (Auto) 0.1 Abs Immat Gran (auto) 0.04 H Absolute Neuts (auto) 9.0 H Absolute Nucleated RBC 0.000 Nucleated RBC % (auto) 0.0 Anion Gap 10 L Estim Creat Clear Calc 152.4 Estimated GFR > 60 Random Glucose 105 Lactic Acid 0.7 Calcium 9.3 D Magnesium 2.1 Total Bilirubin 0.8 AST 46 H ALT 28 Alkaline Phosphatase 68 Total Protein 7.5 Albumin 4.2 Assessment and Plan (1) Sepsis: Status: Acute (2) Acute parotitis: Status: Acute (3) Parapharyngeal space abscess: Status: Acute (4) Myositis: Status: Acute (5) Polysubstance abuse: Status: Acute Plan Patient is a 34-year-old male with a past medical history significant for polysubstance abuse and homelessness, who presented to the ED due to right-sided facial swelling for the past 3 days. Difficult historian, unable to provide much history at this time. Sepsis secondary to acute parotitis with parapharyngeal space abscesses and myositis - WBC 12.7, tachycardic and tachypneic, lactic acid normal, afebrile, blood cultures x2 pending, not severe sepsis - soft tissue neck CT with Subcutaneous fat stranding and soft tissue swelling in the right face and neck as described above compatible with cellulitis.Small rim enhancing fluid collections consistent with abscesses in the right parapharyngeal space and within and deep to the right parotid gland. Right parotid gland is enlarged with increased enhancement consistent with parotitis. Enlarged edematous right masseter muscle consistent with reactive myositis.Mildly enlarged right submandibular and cervical lymph nodes consistent with reactive lymphadenopathy. - ED provider spoke with Dr. Aquino, [facility], who suggested the abscesses are miniscule, no surgical intervention needed, patient needs IV steroids and antibiotics, no need for transfer - patient is started on Zosyn and vancomycin in ED, continue - given dexamethasone 10 mg IV, continue 6 mg q.6h - given 30 cc/kg fluid bolus in ED, blood pressure normal - ENT consult - monitor CBC and BMP Polysubstance abuse - addiction med consult Full code VTE prophylaxis: Lovenox Patient with sepsis secondary to acute parotitis with parapharyngeal space abscesses and myositis, requiring admission for at least 2 midnights stay for IV antibiotics and steroids. Quality Stroke Does the patient have a stroke diagnosis?: No VTE Prior VTE?: No VTE Risk Level:: Medical - moderate - high VTE Device Contraindication: Treatment Not Indicated VTE Drug Contraindication: N/A - Med Ordered
--- NOTE | 2024-11-12 06:46 | PHA.PROG ---
Admission Date/Time: November 12, 2024 03:38 Indication: SSSI Weight in k.8 kg Serum Creatinine - Last 168 Hours 11/11/24 23:49 Creatinine 0.62 Estimated CrCl and GFR - Last 168 Hours 11/11/24 23:49 Estim Creat Clear Calc 152.4 Estimated GFR > 60 Vancomycin Loading Dose: 2,000 MG Current Vancomycin Dosing Regimen: 1,250 MG Q12H Vancomycin Monitoring using AUC goal of 400 - 600 range with trough as surrogate marker: 463, PREDICTED TROUGH 12.4 Date and Time for next Vancomycin Level to be drawn: 11/13 @ 1300 Pharmacist Comments on Vancomycin Plan: Vancomycin dosing will take advantage of [employer] as a clinical decision support tool that uses Bayesian modeling to calculate individual patient's pharmacokinetic parameters and forecast the patient's drug concentration time course with the target goal AUC 24 range of 400 - 600 mg/L/hr.
--- NOTE | 2024-11-12 08:20 | PHA.MEDREC ---
Pharmacy Consult ? Medication Reconciliation Pharmacy has completed the medication reconciliation. Spoke to patient at bedside, he states he is on Zoloft 100mg and has an albuterol inhaler but hasn't had his medications in about three months.
[2024-11-12] MEDS: 0.9 % Sodium Chloride Flush 3 ML SYRINGE IVFLUSH (08:43)
[2024-11-12 10:52] VITALS: BP 125/74; PULSE 90; RESP 14; O2SAT 96
--- NOTE | 2024-11-12 11:08 | PC.NURSE ---
Pt will be transitioning to ED Overflow unit. RN to RN report completed with RN Irene. Awaiting transport
[2024-11-12 12:49] VITALS: BP 109/68; PULSE 71; RESP 16; TEMP 36.6; O2SAT 97
[2024-11-12 13:14] LABS: Hematocrit 34.6 % (42.0-52.0); Hemoglobin 11.6 g/dl (14.0-18.0); Imm Gran Abs Auto 0.02 X10*3/uL (0.00-0.03); Imm Gran Pct Auto 0.3 % (0.0-0.4); Lymphocytes Absolute Auto 0.6 X10*3/uL (1.2-4.9); MANUAL DIFF FLAG SCAN; Mean Corpuscular HGB Conc 33.5 g/dl (31.0-36.0); Mean Corpuscular Hemoglobin 28.0 pg (27.0-33.0); Mean Corpuscular Volume 83.6 fL (80.0-98.0); NRBC Abs Auto 0.000 X10*3/uL (0.0-0.012); NRBC Pct Auto 0.0 /100WBC (0.0-0.2); Platelet Count 308 X10*3/uL (160-400); Red Blood Count 4.14 X10*6/uL (4.60-5.80); SCAN SMEAR FLAG 1; White Blood Count 7.5 X10*3/uL (4.8-10.8)
[2024-11-12 13:24] LABS: Anion Gap 11 (12-20); Blood Urea Nitrogen 13 mg/dL (9-16); Calcium 8.9 mg/dL (8.4-10.2); Carbon Dioxide 29 mmol/L (22-29); Chloride 105 mmol/L (96-108); Creatinine Clr Calc Pharmacy 150.0; Estimated Glomerular Filt Rate > 60; Potassium 3.9 mmol/L (3.3-5.1); Sodium 141 mmol/L (135-145)
--- NOTE | 2024-11-12 13:31 | HO.ADDICTCON ---
History of Present Illness Date of Service: 11/12/2024 Chief Complaint: Facial Swelling Reason for Consult: STEFFEN Sources of Information: patient interviewed and chart reviewed HPI Narrative: Patient is a 34 year old male with history of OUD, currently medically admitted with acute parotits and abscess in parapharengeal space. Consult requested due to patients ongoing substance use. [facility] He is awake, alert, pleasant and engaged in interview. He reports cocaine use, just a little Discussed UDS results being positive for fentanyl. Patient reports he has not used opiates for over a year. Was prescribed Sublocade, and states his last injection was 4-5 months ago--[facility] shows last fill being August 2024. He denies any withdrawal sx. again, restating that he does not use opiates. Reports several long periods of remission from substance use--5 years, 2 years, 9 months He is unhoused and living out of his car. Has a GF, who was with him in ED, however when he woke up she was gone. He is very familiar with recovery resources --considering sublocade again, not sure yet. Review of Systems Constitutional: Reports as per HPI (soreness on right side of face/jaw) Diagnostics Vital Signs (24Hr): Vital Signs - 24 hr 11/11/24 21:49 11/11/24 23:55 11/12/24 00:58 Temperature 99.0 F 99.5 F 98.5 F Pulse Rate 103 H 108 H Respiratory Rate 18 Blood Pressure 124/81 145/88 H Pulse Oximetry 98 100 Oxygen Delivery Method Room Air Room Air 11/12/24 01:30 11/12/24 03:19 11/12/24 04:48 Temperature 98.2 F 98.5 F Pulse Rate 54 78 76 Respiratory Rate 19 21 H 20 Blood Pressure 116/65 110/63 123/82 Pulse Oximetry 94 96 94 Oxygen Delivery Method Room Air Room Air Room Air 11/12/24 10:52 11/12/24 12:49 Temperature 97.8 F Pulse Rate 90 71 Respiratory Rate 14 16 Blood Pressure 125/74 109/68 Pulse Oximetry 96 97 Oxygen Delivery Method Room Air Room Air BMI result Body Mass Index 22.4 Labs 11/12/24 13:03 11/12/24 13:03 Labs: Laboratory Results - last 48 hr 11/11/24 11/12/24 23:49 13:03 WBC 12.7 H 7.5 RBC 4.15 L D 4.14 L Hgb 11.6 L D 11.6 L Hct 34.2 L D 34.6 L MCV 82.4 83.6 MCH 28.0 28.0 MCHC 33.9 33.5 RDW 14.2 13.9 Plt Count 322 308 MPV 9.6 9.9 Immature Gran % (Auto) 0.3 Neut % (Auto) 71.1 Lymph % (Auto) 20.2 Elliott % (Auto) 6.9 Eos % (Auto) 1.0 Baso % (Auto) 0.5 Lymph # (Auto) 2.6 Elliott # (Auto) 0.9 Eos # (Auto) 0.1 Baso # (Auto) 0.1 Abs Immat Gran (auto) 0.04 H Absolute Neuts (auto) 9.0 H Absolute Nucleated RBC 0.000 Nucleated RBC % (auto) 0.0 Sodium 140 141 Potassium 3.3 3.9 Chloride 102 105 Carbon Dioxide 31 H 29 Anion Gap 10 L 11 L BUN 8 L 13 Creatinine 0.62 0.63 Estim Creat Clear Calc 152.4 150.0 Estimated GFR > 60 > 60 Random Glucose 105 196 H Lactic Acid 0.7 Calcium 9.3 D 8.9 Magnesium 2.1 Total Bilirubin 0.8 AST 46 H ALT 28 Alkaline Phosphatase 68 Total Protein 7.5 Albumin 4.2 Mental Status Exam Mental Status Exam Patient Appearance: Appropriate Level of Consciousness: Awake, Appropriate and Alert Patient Behavior: Appropriate, Talkative and Cooperative Affect Description: Calm Speech Pattern: Clear Memory Description: Intact Hallucinations: None Thought Process: Intact Thought Content: positive for Intact Judgement: Good Medications Medications Current Medications Acetaminophen (Acetaminophen 325 Mg Tablet) 975 mg PO Q6H PRN PRN Reason: Pain, Mild 1-3,fever,headache Last Admin: 11/12/24 12:36 Dose: 975 mg Albuterol Sulfate (Albuterol Sulfate 90 Mcg 8 Gm Inhaler) 1 puff INHALE QID PRN PRN Reason: Wheezing Calcium Carbonate (Calcium Carbonate 750 Mg Tab.Chew) 750 mg PO Q4H PRN PRN Reason: Heartburn Dexamethasone Sodium Phosphate (Dexamethasone Sod Phosphate 4 Mg/Ml Vial) 6 mg IVPUSH Q6H [facility] Last Admin: 11/12/24 08:44 Dose: 6 mg Enoxaparin Sodium (Enoxaparin Sodium 40 Mg/0.4 Ml Syringe) 40 mg SUBCUT Q24H [facility] Last Admin: 11/12/24 08:49 Dose: Not Given Vancomycin HCl 1,250 mg/ (Sodium Chloride) 250 mls @ 166.667 mls/hr IV Q12H [facility] Piperacillin Sod/Tazobactam (Sod 4.5 gm/ Sodium Chloride) 100 mls @ 200 mls/hr IV Q6H [facility] Last Admin: 11/12/24 12:01 Dose: Not Given Magnesium Hydroxide (Milk Of Magnesia 30 Ml Oral.Susp) 30 ml PO DAILY PRN PRN Reason: Constipation Melatonin (Melatonin 3 Mg Tablet) 6 mg PO BEDTIME PRN PRN Reason: Insomnia Morphine Sulfate (Morphine Sulfate 4 Mg/Ml Cartridge) 2 mg IVPUSH Q4H PRN; Protocol PRN Reason: Pain, Severe (Pain Scale 7-10) Oxycodone HCl (Oxycodone Hcl Immed Release 5 Mg Tablet) 5 mg PO Q6H PRN PRN Reason: Pain, Moderate(Pain Scale 4-6) Pharmacy Consult (Consult Rx Vancomycin Dosing) 1 each MISCELLANE DAILY PRN PRN Reason: Consult order Sertraline HCl (Sertraline Hcl 100 Mg Tablet) 100 mg PO DAILY [facility] Sodium Chloride (0.9 % Sodium Chloride Flush 3 Ml Syringe) 3 ml IVFLUSH QSHIFT [facility] Last Admin: 11/12/24 08:43 Dose: 3 ml Allergies Allergies Allergy/AdvReac Type Severity Reaction Status Date / Time No Known Allergies Allergy Verified 11/11/24 21:52 Assessment & Plan Assessment & Plan (1) Cocaine use disorder: Status: Acute Code(s): F14.10 - Cocaine abuse, uncomplicated Assessment and Plan: risk reduction discussion --no withdrawal sx noted and none reported. declines medications for STEFFEN at this time, however considering possibly restarting sublocade Recover RN to follow up HIV and hepatitis screens ordered Total time managing care of this patient today __30__ minutes. [facility] Past Medical History Medical History (Updated 11/12/24 @ 14:04 by Neelima Rachel CNP) Polysubstance abuse Social History Social History Unable to assess alcohol history related to: Unable to respond Smoked in Last 30 Days: Yes Use of substances other than those prescribed or required for medical reasons: Yes Substance Use Type: Crack/Cocaine Advance Directives: No Advance Directives Information Provided: No
--- NOTE | 2024-11-12 13:49 | MHC.CM.PN ---
pt lives in his car he reports knowing where all the intermediate are decling alist as well as pcp list as he states he is on a waiting list for 2 pcps he hopes to get into a rehab program pt will be seen by care team prior to dc dc to car
--- NOTE | 2024-11-12 16:30 | PC.NURSE ---
After discussion w/ charge nurse, supervisor doping, and security, it was determined pt eloped.
--- NOTE | 2024-11-12 16:44 | PC.NURSE ---
Called to bedside by tech, pt is no where to be found, search included bathroom and unit. Called video monitoring to confirm if pt left unit and was reported they had seen a plain clothes pt exit ED overflow and then immdiately exit building of hospital approx 20 mins ago. Pts stretcher searched and no iv access found. Charge nurse made aware of pt elopement.
--- NOTE | 2024-11-12 16:52 | PC.NURSE ---
Security notified of pt elopement and iv in place. Per security, will handle from here in conjunction w/ furnace charger
--- NOTE | 2024-11-12 17:00 | PC.NURSE ---
This RN spoke with Mili Sampson, mom, who has not seen patient. Will ask patient to call ed when she hears from him. Pt is homeless. no specific location to try to locate patient.
--- NOTE | 2024-11-12 17:17 | PC.NURSE ---
[employer] are aware of patient's elopment and will be on the lookout.
--- NOTE | 2024-11-12 18:18 | PC.NURSE ---
pt present. IV remained in right A/C and was removed by this RN. Pt states he did not put anything in IV. Has signed AMA form and awaits prescriptions for PO abx.
--- NOTE | 2024-11-13 06:57 | PM.DS ---
DS: Providers Provider Date of Service: 11/13/24 Date of admission: 11/12/24 03:38 Date of discharge: 11/12/24 Primary care physician: Unknown Physician Consults: 11/12/24 05:58 Consult to ENT Routine Consulting Provider: [facility] Reason for consultation: parotitis, myositis, paraphayngeal abscesses Has provider been notified: No 11/12/24 05:59 Addiction Medicine Provider Routine Consulting Provider: Addiction Covering Reason for consultation: polysubstance abuse Has provider been notified: No 11/12/24 11:38 Consult to Infectious Diseases Routine Consulting Provider: [facility] Reason for consultation: parotitis with parapharyngeal abscess DS: Diagnosis Discharge Diagnosis (1) Cocaine use disorder: Status: Acute DS: Summary Hospital Course Hospital Course: HPI and assessment of plan as per admitting provider Patient is a 34-year-old male with a past medical history significant for polysubstance abuse and homelessness, who presented to the ED due to right-sided facial swelling for the past 3 days. He describes an associated sore throat but denies any dysphagia, dyspnea, dental pain or fever. No cough, shortness of breath or chest pain. Pt is somnolent, does not respond to questions much, mostly mumbles a few words. Sepsis secondary to acute parotitis with parapharyngeal space abscesses and myositis - WBC 12.7, tachycardic and tachypneic, lactic acid normal, afebrile, blood cultures x2 pending, not severe sepsis - soft tissue neck CT with Subcutaneous fat stranding and soft tissue swelling in the right face and neck as described above compatible with cellulitis.Small rim enhancing fluid collections consistent with abscesses in the right parapharyngeal space and within and deep to the right parotid gland. Right parotid gland is enlarged with increased enhancement consistent with parotitis. Enlarged edematous right masseter muscle consistent with reactive myositis.Mildly enlarged right submandibular and cervical lymph nodes consistent with reactive lymphadenopathy. - ED provider spoke with Dr. Aquino, [facility], who suggested the abscesses are miniscule, no surgical intervention needed, patient needs IV steroids and antibiotics, no need for transfer - patient is started on Zosyn and vancomycin in ED, continue - given dexamethasone 10 mg IV, continue 6 mg q.6h - given 30 cc/kg fluid bolus in ED, blood pressure normal - ENT consult - monitor CBC and BMP Polysubstance abuse - addiction med consult Patient left AMA soon after hospital admission Status at Discharge Functional status at discharge: independent ambulation Overall status at discharge: patient is not back to baseline Time Attestation Discharge Coordination Time (in mins): 20 Quality: Safe Use of Opioids Does Pt have an Active Cancer Diagnosis on the Problem List?: No Quality: Stroke Does the patient have a stroke diagnosis?: No Physical Exam Exam: Exam: As per admitting provider General: AOx3, no acute distress ENT : Significant rig ht-sided facial sw elling, airway pat ent Resp: CTA bila terally CVS: S1, S 2, RRR GI: +BS, NT , no distention Sk in: Warm, dry Neur o: Cranial nerves II-XII grossly int act bilaterally. M otor grossly intac t bilaterally Extr emities: No edema Psych: Appropriate affect Const: General: No confus ion Orientation/c onsciousness: No c onfusion Neuro: General: No confus ion Vital Signs: Vital Signs: Last Vital Signs Temp 97.8 F 11/12/24 12:49 Pulse 71 11/12/24 12:49 Resp 16 11/12/24 12:49 BP 109/68 11/12/24 12:49 Pulse Ox 97 11/12/24 12:49 O2 Del Method Room Air 11/12/24 12:49 BMI result Body Mass Index 22.4 DS: Data Data Completed and Pending Labs on day of discharge: Laboratory Results - last 24 hr 11/12/24 13:03 WBC 7.5 RBC 4.14 L Hgb 11.6 L Hct 34.6 L MCV 83.6 MCH 28.0 MCHC 33.5 RDW 13.9 Plt Count 308 MPV 9.9 Immature Gran % (Auto) 0.3 Neut % (Auto) 90.2 H Lymph % (Auto) 7.8 L [place] % (Auto) 1.6 L Eos % (Auto) 0.0 Baso % (Auto) 0.1 Lymph # (Auto) 0.6 L [place] # (Auto) 0.1 Eos # (Auto) 0.0 Baso # (Auto) 0.0 Abs Immat Gran (auto) 0.02 Absolute Neuts (auto) 6.8 Absolute Nucleated RBC 0.000 Nucleated RBC % (auto) 0.0 Smear Tech's Comments VERIFIED Sodium 141 Potassium 3.9 Chloride 105 Carbon Dioxide 29 Anion Gap 11 L BUN 13 Creatinine 0.63 Estim Creat Clear Calc 150.0 Estimated GFR > 60 Random Glucose 196 H Calcium 8.9 Preliminary micro results at discharge 11/12/24 00:03 Blood Culture - Preliminary Blood - Venous No growth after 24 hours. 11/11/24 23:49 Blood Culture - Preliminary Blood - Venous No growth after [address] scan - head: My impression: SOFT TISSUE NECK CT: IMPRESSION: 1. Subcutaneous fat stranding and soft tissue swelling in the right face and neck as described above compatible with cellulitis. 2. Small rim enhancing fluid collections consistent with abscesses in the right parapharyngeal space and within and deep to the right parotid gland. 3. Right parotid gland is enlarged with increased enhancement consistent with parotitis. 4. Enlarged edematous right masseter muscle consistent with reactive myositis. 5. Mildly enlarged right submandibular and cervical lymph nodes consistent with reactive lymphadenopathy. Discharge Plan Discharge Patient Disposition: Left Against Medical Advice Discharge Diagnosis: Sepsis secondary to acute peritonitis with parapharyngeal space abscesses Discharge Medications: No Action sertraline 100 mg Tablet 100 mg PO DAILY albuterol sulfate 90 mcg/actuation Hfa Aerosol Inhaler 1 inh INHALATION QID PRN (Reason: Wheezing) Discharge Orders: Discharge Order (Routine); Ordered 11/13/24 Ordered By: Cecilia Cervantes Diet: Advance to usual diet Activity on Discharge: As tolerated Stand Alone Forms: Against Medical Advice Print Language: Uzbek Care Plan Goals: Follow-up with PCP within 1 week Health Concerns: Polysubstance use disorder Acute parotitis Myositis Parapharyngeal space abscesses Plan of Treatment: Complete antibiotic treatment for acute parotitis with parapharyngeal space abscesses Assessment: as above Discharge Date/Time: 11/12/24 18:00
== END 2024-11-12 18:00 | disposition left against medical advice (07) | DRG 720 ==
LOC: HO.ED 11-12 03:45 → HO.EDOVER 11-12 03:52 → HO.S3 11-12 16:51 → HO.EDOVER 11-12 17:53
PROVIDERS: Physician Assistant Medical; Admitting Provider Physician Assistant; Emergency Provider Emergency Medicine; Visit Provider Student in an Organized Health Care Education/Training Program
DX: A41.9 Sepsis, unspecified organism (principal); J39.0 Retropharyngeal and parapharyngeal abscess; K11.21 Acute sialoadenitis; M60.9 Myositis, unspecified; F14.10 Cocaine abuse, uncomplicated; F19.10 Other psychoactive substance abuse, uncomplicated; Z59.02 Unsheltered homelessness; Z79.899 Other long term (current) drug therapy
CPT/HCPCS: 36415; 70491; 80048; 80053; 83605; 83735; 85025; 87040; 99285; J0131; J1100; J1885; J2543; J3374; Q9967

== ENCOUNTER → 2024-11-12 03:38 | Outpatient (BNV) | payer MEDICAID, SELFPAY | PROVIDERS: Admitting Provider Physician Assistant; Emergency Provider Emergency Medicine; Visit Provider Physician Assistant | DX: F14.10 Cocaine abuse, uncomplicated (principal) | CPT/HCPCS: 99223; 99499 ==

== ENCOUNTER → 2024-11-12 03:38 | Outpatient (BNV) | payer MEDICARE, MEDICAID, SELFPAY | PROVIDERS: Admitting Provider Physician Assistant; Emergency Provider Emergency Medicine; Visit Provider Nurse Practitioner Psychiatric/Mental Health | DX: F14.10 Cocaine abuse, uncomplicated (principal) | CPT/HCPCS: 99284 ==

== ENCOUNTER → 2024-11-12 | Outpatient (BNV) | payer MEDICARE, MEDICAID, SELFPAY | PROVIDERS: Emergency Provider Emergency Medicine; Visit Provider Radiology Diagnostic Radiology | DX: R22.0 Localized swelling, mass and lump, head (principal) | CPT/HCPCS: 70491 ==

== ENCOUNTER 2024-12-31 20:23 | Emergency (ER) | payer MEDICAID, SELFPAY ==
--- OUTSIDE RECORDS SUMMARY | 2024-07-12 10:00 | XMS_ITS ---
Author Organization [facility] Address [address] [place] [id number] Care Team Providers Care Lsat Instructor Name Role Phone ZZArchive - DUPLICATE DO NOT USE, [facility] Primary Care Provider Unavailable Trinity Rogers Unavailable [phone] [facility], Nursing Unavailable [phone] REASON FOR VISIT Office: Intake Encounters Encounter Location Date Provider Diagnosis [address] [phone] 07/12/2024 Nursing [facility] Plan Of Treatment No Information Progress Notes * Everardo SAMPSON PDOB: [birth year] (34 yo M)Acc No.[id number]:07/12/2024 Progress Notes Patient: Wang Everardo ALCALA Provider: Evie jimenez [facility] :1990 A ge:34 Y S ex:Male Date:07/12/2024 Address:[address] [place], [place] [id number] Pcp:[facility] ZZArchive - DUPLICATE DO NOT USE Subjective: * Chief Complaints: * 1 . Office: Intake. * Medical History: Objective: * Vitals: Assessment: Plan: * Treatment: * Images: Billing Information: * Visit Code: * Procedure Codes: * Electronic signature of [facility] on 12/31/2024 at 08:57 PM EDT Sign off status: Pending * Provider: Evie jimenez [facility] Date: 07/12/2024 Generated for Printi ng/Fameghang/eTransmitting on: 0 12/31/2024 08:57 PM EDT
--- OUTSIDE RECORDS SUMMARY | 2024-09-19 09:00 | XMS_ITS ---
Author Organization [facility] Address [address] [place] [phone] Care Team Providers Care Bracelet Former Name Role Phone [employer] - DUPLICATE DO NOT USE, [facility] Primary Care Provider Unavailable Trinity Rogers Unavailable [facility], Nursing Unavailable [phone] REASON FOR VISIT Phone ; Intake [phone] Medications Medication SIG (Take, Route, Fr equency, Duration) Notes Start Date End Date Status METFORMIN 1000 mg 1 tab(s) orally 2 ti mes a day for 14 Unknown LISINOPRIL 20 mg 1 tab(s) orally once a day for 30 days 04/28/2019 Not-Taking Encounters Encounter Location Date Provider Diagnosis [address] [phone] 09/19/2024 Nursing [facility] Plan Of Treatment No Information Progress Notes * Everardo SAMPSON PDOB: [birth year] (34 yo M)Acc No.[id number]:09/19/2024 Progress Notes Patient: Wang Everardo ALCALA Provider: Evie jimenez [facility] :1990 A ge:34 Y S ex:Male Date:09/19/2024 Address:[address] [place], [place] [phone] Pcp:[facility] [employer] - DUPLICATE DO NOT USE Subjective: * Chief Complaints: * 1 . Phone ; Intake [phone]. * Medical History: * Medications: N ot-Taking/PRN LISINOPRIL 20 mg tablet 1 tab(s) orally once a day , Unknown METFORMIN 1000 mg tablet 1 tab(s) orally 2 times a day Objective: * Vitals: Assessment: Plan: * Treatment: * Images: Billing Information: * Visit Code: * Procedure Codes: * Electronic signature of Lorene harry [facility] on 12/31/2024 at 08:57 PM EDT Sign off status: Pending * Provider: Evie jiemnez [facility] Date: 0 09/19/2024 Generated for Mary sun/Kenny/Luis Miguel on: 0 12/31/2024 08:57 PM EDT
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
--- OUTSIDE RECORDS SUMMARY | 2024-12-28 17:00 | XMS_ITS ---
Author Organization [facility] Address [address] [place] [id number] Care Team Providers Care Spring Tier Name Role Phone [employer] - DUPLICATE DO NOT USE, [facility] Primary Care Provider Unavailable Trinity Rogers Unavailable Migration, Provider Unavailable Unavailable REASON FOR VISIT Multum To Medispan Conversion Encounter Medications Medication SIG (Take, Route, Frequency, Duration) Notes Start Date End Date Status Lisinopril 20 MG 1 tab(s) orally once a day for 30 days 04/28/2019 Not-Taking metFORMIN HCl 1000 MG 1 tab(s) orally 2 times a day for 14 Unknown Encounters Encounter Location Date Provider Diagnosis [address] [address] 12/28/2024 Provider Migration Plan Of Treatment No Information Progress Notes * Everardo SAMPSON PDOB: [birth year] (34 yo M)Acc No.[id number]:12/28/2024 Patient: Wang Everardo ALCALA Provider: :1990 A ge:34 Y S ex:Male Date:12/28/2024 Address:[address] [place] [address] Pcp:[facility] less [employer] - DUPLICATE DO NOT USE Subjective: * Chief Complaints: * 1 . Multum To Medispan Conversion Encounter. * Medical History: * Medications: N ot-Taking/PRN Lisinopril 20 MG Tablet 1 tab(s) orally once a day , Unknown metFORMIN HCl 1000 MG Tablet 1 tab(s) orally 2 times a day Objective: * Vitals: Assessment: Plan: * Treatment: * Images: Billing Information: * Visit Code: * Procedure Codes: * Electronic signature of Prov ider Migration on 12/31/2024 at 08:57 PM EDT Sign off status: Pending * Provider: Date: 12/28/2024 Generated for Mary sun/Kenny/Luis Miguel on: 12/31/2024 08:57 PM EDT
[2024-12-31 20:24] VITALS: BP 128/78; BP 128/86; PULSE 75; PULSE 78; RESP 20; TEMP 36.9; O2SAT 100; O2SAT 97; BMI 25.8
--- OUTSIDE RECORDS SUMMARY | 2024-12-31 20:57 | XMS_ITS | Clinical Summary ---
Author Organization [facility] Address [address] [place] [address] Care Team Providers Care Transportation Associate Name Role Phone Unknown Primary Care Provider [phone] Medications sertraline (ZOLOFT) 100 MG tablet Take [...] mg/0.1 mL Liquid nasal spray deviceIndication s:Overdose Bel[place] contents (4mg) into one nostril once. May repeat every 2 to 3 minutes in alternating nostrils. Call 911 immediately after use. 1 each 1 5 Active Active Problems Problem Noted Date Diagnosed Date Drug overdose of undetermined intent, initial en counter 09/16/2024 Social History Tobacco Use Types Packs/Day Years Used Date Smoking Tobacco: Never Assessed [facility] Utilities Answer Date Recorded In the past 12 months has [employer] electric, gas, oil, or water company threatened to shut off services in your [...] any time in the past 12 m [facility], were you homeless or living in a assisted (including now)? No 09/17/2024 Sex and Gender [...] of 3 - 19+ 3-dose series) 2008 HPV Vaccines (1 - 3-dose SCD M series) 2016 Influenza Vaccine 11/15/2024 COVID-19 Vaccine ( - 2023-2 5 season) 2024 Pneumococcal Vaccine: Pediat trey (0-5 Years) and At-Risk Patients (6 to 49 Years) Aged Out No longer eligible b ased on patient's age to complete this topic Insurance [facility] Advance Directives * Full Code (Latest Code Status on File) Date Activated Date Inactivated Comments 09/16/2024 7:31 PM Care Teams Transportation Associate Relationship Specialty Start Date End Date Unknown Unknow Provider Address PCP - General 09/16/24
--- OUTSIDE RECORDS SUMMARY | 2024-12-31 20:57 | XMS_ITS | Patient Health Record ---
Author Organization [facility] Address [address] [place] [address] Care Team Providers Care Hospice Volunteer Coordinator Name Role Phone [employer] - DUPLICATE DO NOT USE, [facility] Primary Care Provider Unavailable Trinity Rogers Unavailable [facility], Nursing Unavailable [phone] Migration, Provider Unavailable Unavailable Reason For Referral No Information Medications Medication SIG (Take, Route, Frequency, Duration) Notes Start Date End Date Status Lisinopril 20 MG 1 tab(s) orally once a day for 30 days 04/28/2019 Not-Taking metFORMIN HCl 1000 MG 1 tab(s) orally 2 times a day for 14 Unknown Immunizations Vaccine Route Administration Date Status Comme nts PPD negative Unknown 10/19/2012 Administered Influenza IM Intramuscular 01/20/2015 Administered Varicella Unknown 10/14/1997 Administered MMR Unknown 10/14/1997 Administered 07/14/90,10/14 DTaP (Pediatric) Unknown 10/14/1997 Administered 0, 89, 89, 07/14/92, 07/14/94 Hepatitis B (pediatric) - Do not use Unknown 11/29/2001 Administered 02/02/2001, 11/29/2001 HIB Unknown 07/14/1990 Administered Polio: IPV Unknown 07/14/1994 Administered 89, 89, 89, 07/14/92, 07/14/94 Td Unknown 12/07/2000 Administered Hepatitis B (20 or more) IM Intramuscular 07/20/2015 Administered Hepatitis A IM Intramuscular 11/24/2016 Administered Influenza IM Intramuscular 01/26/2017 Administered [facility] [id number] Pneumococcal IM Intramuscular 01/26/2017 Administered [facility] [id number] Social History Tobacco Use: Social History Observation [...] smoking today Patient counseled on the shanel gers of tobacco use and advised to quit: 04/25/2019 Problems Problem Type SNOMED Code ICD Code Onset Dates Problem Status W/U Status Risk Notes Problem Type II diabetes mellitus without complication (805085699) Type 2 diabetes mellitus without complications (E11.9) Active confirmed Problem Obesity (129212472) Obesity, unspecified (E66.9) Active confirmed Problem Opioid dependence (53162549) Opioid dependence, uncomplicated (F11.20) Active confirmed Problem Cannabis abuse (76332567) Cannabis abuse, uncomplicated (F12.10) Active confirmed Problem Nondependent cocaine abuse (599250290) Cocaine use, unspecified, uncomplicated (F14.90) Active confirmed Abstinent x 2 yrs lat use 2014 Problem Tobacco user (625736374) Nicotine dependence, cigarettes, uncomplicated (F17.210) Active confirmed Problem Affective psychosis (856629175) Unspecified mood [affective] disorder (F39) Active confirmed Problem Insomnia (459190019) Insomnia due to medical condition (G47.01) Active confirmed Problem Essential hypertension (09631992) Essential (primary) hypertension (I10) Active confirmed Problem Mild intermittent asthma (275167854) Mild intermittent asthma, uncomplicated (J45.20) Active confirmed Problem Exacerbation of intermittent asthma (160197713) Mild intermittent asthma with (acute) exacerbation (J45.21) Active confirmed Problem Pes planus (53977989) Flat foot [pes planus] (acquired), right foot (M21.41) Active confirmed Problem Neuralgia (26403019) Neuralgia and neuritis, unspecified (M79.2) Active confirmed Problem Obese class II (61506835551371 5) Body mass index (BMI) 35.0-35.9, adult (Z68.35) Active confirmed Encounters Encounter Location Date Provider Diagnosis [facility] [address] [place] [address] 12/28/2024 Provider Migration Plan Of Treatment Pending Test Test Name Order Date X ray : Foot, left 01/20/2015 X ray : Leg, left 01/20/2015 BUN (Blood Urea Nitrogen) - [facility] Creatinine - [facility] 01/07/2015 Rapid Strep OSOM A 12/25/2012 Electrolyte Panel 01/07/2015 HIV 1/2 ANTIGEN/ANTIBODY,FOURTH GENERATI ON W/RFL 12/01/2016 AST 12/01/2016 ALT 12/01/2016 THYROID CASCADING REFLEX 12/01/2016 SYPHILIS ANTIBODY CASCADING REFLEX 12/01 BUN 04/24/2019 CBC 04/02/2019 CHLAMYDIA / GC DNA W RFLX 09/19/2019 COMPREHENSIVE METABOLIC PANEL 04/02/2019 CREATININE WITH GFR 04/24/2019 LIVER FIBROSIS PANEL 04/02/2019 GLYCOHEMOGLOBIN PROFILE 04/05/2019 HCV VIRAL LOAD 04/02/2019 HEP C VIRAL RNA GENOTYPE 04/02/2019 ELECTROLYTES 04/24/2019 PT/INR 04/02/2019 THYROID PROFILE 09/19/2019 THYROID PROFILE 04/02/2019 URINALYSIS 04/05/2019 MICROALB/CREAT RATIO, RANDOM 04/05/2019 BASIC METABOLIC PANEL (BMP) 10/05/2020 CBC 10/05/2020 GLYCOHEMOGLOBIN PROFILE 10/05/2020 URINALYSIS 10/05/2020 MICROALB/CREAT RATIO, RANDOM 10/05/2020 Insurance Providers Payer Name Payer Address Payer Phone Subscriber Number Group Number Insured Name Patient Relationship to Insured Coverage Start Date Coverage End Date [place] C[place] [address] [place], [place] [id number] Everardo Sampson Self - patient is the insured [place] [employer] [address] [place] [address] [id number] Everardo Sampson Self - patient is the insured Medical (General) History Medical History History ICD Code hypertension obesity opiate pill abuse x 5 years DM II Dx 03/2019 asthma MENTAL/BEHAVIOR PROB NOS COCAINE ABUSE-UNSPEC CANNABIS ABUSE-UNSPEC OBESITY NOS BMI 30.0-39.9 Tobacco use disorder Hypertension NOS Mood disorder NOS Dog bite at age 18 in Left calf 11/12/16 Acute hepatis C Surgical History Surgery Date(Month/Year) none Hospitalization History Reason Date(Month/Year[place] [facility] sided dental abscess [facility] Heroin OD sniff 04/08/18 [facility] abd pain + nausea/vomiting [facility] Asthma 02/11/17 [facility] Admission jaundice, elev ated liver enyzmes, ? ischemic/liver shock 11/12/16->11/15/16 Abd pain RX: Gol[facility] 10/17/16 Prov Detox/records reviewed [facility] 11/2014 Has had been in detox x 3- last detox [facility] @ [facility] June 2012 acute bronchitis- [facility] [place]
--- OUTSIDE RECORDS SUMMARY | 2024-12-31 20:58 | XMS_ITS | Clinical Summary ---
Author Organization [facility] Address [address] [place] [address] Phone Care Team Providers Care Supervisor Hydrochloric Area Name Role Phone Physician, No Pcp Primary [...] 12/07/2010 12/07/2000, 06/29/1994, 06/29/1992, Additional history exists Depression Screening 04/17/2024 Cholesterol Screening (Lipid Panel) 06/03/2024 HIV Screening 06/03/2024 Hepatitis C Screening 06/03/2024 Social Influencers of Health Screening 06/03/2024 COVID-19 Vaccine ( season) 2024 08/10/2020, 07/18/2020 Influenza Vaccine (#1) 2024 HIB Vaccines Aged [...] to complete this topic Insurance MEDICAID - [place] Care Teams Supervisor Hydrochloric Area Relationship Specialty Start Date End Date Physician, No Pcp PCP - General 06/03/24
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
[2024-12-31] MEDS: Lidocaine 4 % Patch ADH..PATCH 1 PATCH TRANSDERMA (22:09)
[2024-12-31 22:13] VITALS: BP 128/78; PULSE 75; RESP 20; TEMP 36.9; O2SAT 97
== END 2024-12-31 22:13 | disposition home or self-care (01) ==
PROVIDERS: Emergency Provider Emergency Medicine
DX: R07.81 Pleurodynia (principal); Z87.828 Personal history of other (healed) physical injury and trauma; Z65.3 Problems related to other legal circumstances
CPT/HCPCS: 96372; 99283; 99284; J1885